=== PATIENT | female | born 1945 | race Caucasian/White ===

== ENCOUNTER 2020-04-24 22:28 | Emergency (ER) | payer OTHER ==
[2020-04-24] MEDS ORDERED: NA CHLORIDE 0.9% 0 ML ONE (23:15)
[2020-04-24] MEDS ORDERED: ONDANSETRON 4 MG/2 ML VIAL ONE ×2 (23:15→23:33)
[2020-04-24] MEDS ORDERED: NA CHLORIDE 0.9% 1,000 ML ONE (23:33)
[2020-04-24 23:42] LABS: Absolute Lymphocytes (CBC) 1.2 K/uL (0.7-4.9); Basophils % 0.3 % (0-1.3); Hematocrit 38.8 % (36.0-45.0); Lymphocytes % 16.9 % (15.3-44.8); MPV 9.3 fL (7.6-11.3); RBC Red Blood Cell Count 4.51 M/uL (3.86-4.86)
[2020-04-24 23:47] LABS: Urine Blood TRACE (NEG); Urine Glucose NEGATIVE (NEG); Urine Protein NEGATIVE (NEG)
[2020-04-24 23:51] LABS: Protime INR 0.98
[2020-04-24 23:56] LABS: ALT/SGPT 32 U/L (12-78); AST/SGOT 22 U/L (15-37); Albumin 4.1 g/dL (3.4-5.0); Alkaline Phosphatase 98 U/L (45-117); BUN Blood Urea Nitrogen 19 mg/dL (7-18); Bicarbonate 30 mmol/L (21-32); Bilirubin Direct < 0.1 mg/dL (0-0.2); Bilirubin Total 0.3 mg/dL (0.2-1.0); Glucose Level 91 mg/dL (74-106); Lipase 102 U/L (73-393); Potassium 3.8 mmol/L (3.5-5.1); Protein, Total 7.8 g/dL (6.4-8.2); Sodium Level 140 mmol/L (136-145); Troponin (Emerg Dept Use Only) < 0.02 ng/mL (0.0-0.045)
[2020-04-25 00:06] LABS: Urine Bacteria <20 /HPF (<20); Urine Culture Reflex Order NOT NEEDED; Urine RBC <5 /HPF (NONE SEEN)
--- NOTE | 2020-04-25 01:15 | ER ---
Nurse's Notes [facility] Name: Ruby Chan Age: 74 yrs Sex: Female : 1945 Arrival Date: 04/24/2020 Time: 22:30 Bed 18 Private MD: Diagnosis: Vomiting, unspecified;Near syncope Presentation: 04/24 22:39 Chief complaint: Patient states: she started feeling like she was going to pass out, bb with vomiting and her BP was in the 200s systolic. Coronavirus screen: At this time, the client does not indicate any symptoms associated with coronavirus-19. Ebola Screen: No symptoms or risks identified at this time. Initial Sepsis Screen: Does the patient meet any 2 criteria? No. Patient's initial sepsis screen is negative. Does the patient have a suspected source of infection? No. Patient's initial sepsis screen is negative. Risk Assessment: Do you want to hurt yourself or someone else? Patient reports no desire to harm self or others. Onset of symptoms was April 24, 2020. 22:39 Method Of Arrival: Wheelchair bb 22:39 Acuity: CHALINO 2 bb Historical: - Allergies: 22:41 No Known Allergies; bb - Immunization history:: Adult Immunizations up to date. - Social history:: Smoking status: Patient denies any tobacco usage or history of. - Family history:: not pertinent. - Hospitalizations: : No recent hospitalization is reported. Screenin:45 Abuse screen: Denies threats or abuse. Denies injuries from another. Nutritional aj1 screening: No deficits noted. Tuberculosis screening: No symptoms or risk factors identified. Assessment: 23:30 General: Appears in no apparent distress. comfortable, Behavior is calm, cooperative, aj1 appropriate for age. Pain: Complains of pain in abdomen Pain does not radiate. Pain currently is 3 out of 10 on a pain scale. Quality of pain is described as pressure, Patient states that the pain feels "like gas". Neuro: Level of Consciousness is awake, alert, obeys commands, Oriented to person, place, time, situation. Neuro: Splunk Consultant are equal bilaterally Moves all extremities. Full function Gait is steady, Speech is normal, Facial symmetry appears normal, Reports dizziness, near syncope. Cardiovascular: Denies chest pain, Heart tones S1 S2 present Patient's skin is warm and dry. Respiratory: Airway is patent Respiratory effort is even, unlabored, Respiratory pattern is regular, symmetrical. GI: Abdomen is flat, non-distended, Abd is soft X 4 quads Reports nausea, vomiting, Patient currently denies diarrhea. : No signs and/or symptoms were reported regarding the genitourinary system. EENT: No signs and/or symptoms were reported regarding the EENT system. Derm: No signs and/or symptoms reported regarding the dermatologic system. Skin is pink, warm \\T\\ dry. normal. Musculoskeletal: No signs and/or symptoms reported regarding the musculoskeletal system. Circulation, motion, and sensation intact. 04/25 00:30 Reassessment: Patient appears in no apparent distress at this time. Patient and/or jb4 family updated on plan of care and expected duration. Pain level reassessed. Patient is alert, oriented x 3, equal unlabored respirations, skin warm/dry/pink. 01:00 Reassessment: Pt resting in bed with eyes closed, respirations are even and unlabored. jb4 No s/s of pain or distress noted. Son remains at the bedside. Vital Signs: 04/24 22:39 BP 193 / 85; Pulse 59; Resp 16 S; Temp 97.7(O); Pulse Ox 99% on R/A; Weight 83.91 kg bb (R); Height 5 ft. 9 in. (175.26 cm) (R); Pain 0/10; 23:45 BP 167 / 75; Pulse 72; Resp 16; Pulse Ox 98% on R/A; aj1 04/25 01:00 BP 120 / 68; Pulse 64; Resp 14; Pulse Ox 92% on R/A; jb4 04/24 22:39 Body Mass Index 27.32 (83.91 kg, 175.26 cm) bb ED Course: 04/24 22:30 Patient arrived in ED. am2 22:40 Triage completed. bb 22:41 Arm band placed on Patient placed in an exam room, on a stretcher, on potline monitor, bb on pulse oximetry. Family accompanied patient. 22:42 Jackson Meza MD is Attending Physician. rn 23:10 Urine collected: clean catch specimen, clear, adolfo colored. jp3 23:12 EKG done, by ED staff, reviewed by Jackson Meza MD. jp3 23:45 Patient has correct armband on for positive identification. Bed in low position. Call aj1 light in reach. Side rails up X 1. bus monitor on. Pulse ox on. NIBP on. 23:45 No provider procedures requiring assistance completed. aj1 23:59 Report given to Yuliya Hodgson RN. aj1 04/25 00:18 Raul Hernandez, RN is Primary Nurse. jb4 00:37 CT Head Brain wo Cont In Process Unspecified. EDMS 00:37 CT Abd/Pelvis - IV Contrast Only In Process Unspecified. EDMS 01:42 IV discontinued, intact, bleeding controlled, No redness/swelling at site. Pressure jb4 dressing applied. Administered Medications: 04/24 23:15 Drug: NS 0.9% 1000 ml Route: IV; Rate: 1000 ml; Site: right antecubital; jb4 04/25 01:42 Follow up: IV Status: Completed infusion; IV Intake: 1000ml jb4 04/24 23:17 Drug: Zofran (Ondansetron) 4 mg Route: IVP; Site: right antecubital; jb4 23:59 Follow up: Response: No adverse reaction aj1 Intake: 04/25 01:42 IV: 1000ml; Total: 1000ml. jb4 Outcome: 01:15 Discharge ordered by MD. rn 01:41 Discharged to home ambulatory, with family. jb4 01:41 Condition: stable 01:41 Discharge instructions given to patient, Instructed on discharge instructions, follow up and referral plans. medication usage, Demonstrated understanding of instructions, follow-up care, medications, Prescriptions given X 1. 01:42 Patient left the ED. jb4 Addendum: 04/30/2020 08:46 Addendum: COVID-19 Result: Negative result given to RN to notify pt. Notified pt of s s negative COVID 19 swab results. Pt advised that even with a negative test result they should remain in isolation until symptom free for 3 days without medication. Pt also advised to return to the ED for worsening symptoms. Signatures: Dispatcher [employer] Reena Esquivel RN RN aj1 Yuliya Winn RN RN bb Nieto, Roman, MD MD rn Smirch, Shelby, RN RN ss Raul Hernandez RN RN jb4 Myriam Lee am2 Uvaldo Ayers jp3
--- NOTE | 2020-04-25 01:15 | EDPHYS ---
Physician Documentation [facility] Name: Ruby Chan Age: 74 yrs Sex: Female : 1945 Arrival Date: 04/24/2020 Time: 22:30 Bed 18 Private MD: ED Physician Jackson Meza HPI: 04/24 22:55 This 74 yrs old Female presents to ER via Wheelchair with complaints of High rn Blood Pressure, Nausea/Vomiting, feels like passing out. 22:55 The patient presents to the emergency department with nausea, vomiting, abdominal pain. rn Onset: The symptoms/episode began/occurred today. Possible causes: bad food exposure. The symptoms are aggravated by nothing. The symptoms are alleviated by nothing. Severity of symptoms: At their worst the symptoms were moderate in the emergency department the symptoms have improved. The patient has not experienced similar symptoms in the past. The patient has not recently seen a physician. Reports ate peruvian food tonight, began to throw up at home, another family member with vomiting as well, they think is bad food exposure. Was on toilet trying to use bathroom, felt lightheaded, near syncope, did not pass out, took BP and was high so decided to come in for eval, feels a little better. NO headache/chest pain/sob/cough/diarrhea. . Historical: - Allergies: 22:41 No Known Allergies; bb - Immunization history:: Adult Immunizations up to date. - Social history:: Smoking status: Patient denies any tobacco usage or history of. - Family history:: not pertinent. - Hospitalizations: : No recent hospitalization is reported. ROS: 22:55 Constitutional: Negative for fever, chills, and weight loss, Eyes: Negative for injury, rn pain, redness, and discharge, Neck: Negative for injury, pain, and swelling, Cardiovascular: Negative for chest pain, palpitations, and edema, Respiratory: Negative for shortness of breath, cough, wheezing, and pleuritic chest pain, Abdomen/GI: + nausea/vomiting/abd pain MS/Extremity: Negative for injury and deformity, Skin: Negative for injury, rash, and discoloration, Neuro: Negative for headache, numbness, tingling, and seizure. Exam: 22:55 Constitutional: This is a well developed, well nourished patient who is awake, alert, rn and in no acute distress. Head/Face: Normocephalic, atraumatic. Eyes: Pupils equal round and reactive to light, extra-ocular motions intact. Lids and lashes normal. Conjunctiva and sclera are non-icteric and not injected. Cornea within normal limits. Periorbital areas with no swelling, redness, or edema. Cardiovascular: Regular rate and rhythm. No pulse deficits. Respiratory: No increased work of breathing, no retractions or nasal flaring. Abdomen/GI: soft mild bilateral lower abd tenderness, no rebound Skin: Warm, dry MS/ Extremity: Pulses equal, no cyanosis. Neurovascular intact. Full, normal range of motion. Equal circumference. Neuro: Awake and alert, GCS 15, oriented to person, place, time, and situation. Cranial nerves II-XII grossly intact. Motor strength 5/5 in all extremities. Sensory grossly intact. Cerebellar exam normal. 23:14 ECG was reviewed by the Attending Physician. rn Vital Signs: 22:39 BP 193 / 85; Pulse 59; Resp 16 S; Temp 97.7(O); Pulse Ox 99% on R/A; Weight 83.91 kg bb (R); Height 5 ft. 9 in. (175.26 cm) (R); Pain 0/10; 23:45 BP 167 / 75; Pulse 72; Resp 16; Pulse Ox 98% on R/A; aj1 04/25 01:00 BP 120 / 68; Pulse 64; Resp 14; Pulse Ox 92% on R/A; jb4 04/24 22:39 Body Mass Index 27.32 (83.91 kg, 175.26 cm) bb MDM: 04/24 22:42 Patient medically screened. rn 04/25 01:09 Differential diagnosis: Nonspecific abd pain, gastritis, cholecystitis, pancreatitis, rn appendicitis, diverticulitis, viral gastroenteritis, gastroenteritis, food poisoning. Data reviewed: vital signs, nurses notes, lab test result(s), radiologic studies, CT scan, and as a result, I will discharge patient. Counseling: I had a detailed discussion with the patient and/or guardian regarding: the historical points, exam findings, and any diagnostic results supporting the discharge/admit diagnosis, lab results, radiology results, the need for outpatient follow up, to return to the emergency department if symptoms worsen or persist or if there are any questions or concerns that arise at home. Response to treatment: the patient's symptoms have markedly improved after treatment, the patient's condition has returned to base line, the patient is now symptom free, patient is well hydrated. :11 ED course: Pt back to baseline, no acute findings on CT head or abdomen, stable vitals, rn improvement of BP without BP meds, ambulatory to bathroom, normal neuro exam. Will dc home with prn nausea medication. . 04/24 22:53 Order name: CBC with Diff 04/24 22:53 Order name: Basic Metabolic Panel 04/24 22:53 Order name: Protime (+inr); Complete Time: : 04/24 22:53 Order name: Ptt, Activated; Complete Time: 04/24 22:53 Order name: Influenza Screen (a \T\ B); Complete Time: : 04/24 22:53 Order name: COVID-19 04/24 22:53 Order name: Hepatic Function 04/24 22:53 Order name: Lipase; Complete Time: : 04/24 22:53 Order name: Urine Microscopic Only; Complete Time: : 04/24 22:53 Order name: Troponin (emerg Dept Use Only); Complete Time: : 04/24 22:53 Order name: CBC with Automated Diff; Complete Time: : EDCT 04/24 22:53 Order name: Basic Metabolic Panel; Complete Time: : [facility] 04/24 22:54 Order name: Liver (Hepatic) Function; Complete Time: [facility] 04/24 23:21 Order name: Urine Dipstick--Ancillary (enter results) tt3 04/24 22:53 Order name: CT Head Brain wo Cont 04/24 22:53 Order name: CT Abd/Pelvis - IV Contrast Only 04/24 22:53 Order name: IV Start; Complete Time: 23:25 04/24 22:53 Order name: Labs collected and sent; Complete Time: 23:25 04/24 22:53 Order name: Urine Dipstick-Ancillary (obtain specimen); Complete Time: 23:20 04/24 22:53 Order name: EKG - Nurse/Tech; Complete Time: 23:20 04/24 22:53 Order name: EKG; Complete Time: 22:54 rn 04/24 23:22 Order name: Urine Dipstick-Ancillary; Complete Time: 01:10 EDMS EC/10 23:14 Rate is 58 beats/min. Rhythm is regular. QRS Remer is Normal. SD interval is normal. QRS rn interval is normal. QT interval is normal. No Q waves. T waves are Normal. No ST changes noted. Clinical impression: Sinus bradycardia. Interpreted by me. Reviewed by me. Administered Medications: 23:15 Drug: NS 0.9% 1000 ml Route: IV; Rate: 1000 ml; Site: right antecubital; [facility] 04/25 01:42 Follow up: IV Status: Completed infusion; IV Intake: 1000ml [facility] 04/24 23:17 Drug: Zofran (Ondansetron) 4 mg Route: IVP; Site: right antecubital; [facility] 23:59 Follow up: Response: No adverse reaction aj1 Disposition: 04/25/20 01:15 Discharged to Home. Impression: Vomiting, unspecified, Near syncope. - Condition is Stable. - Discharge Instructions: Nausea and Vomiting, Adult, Near-Syncope. - Prescriptions for Zofran ODT 4 mg Oral tablet,disintegrating - place 1 tablet by TRANSLINGUAL route every 8 hours As needed; 20 tablet. - Medication Reconciliation Form, Thank You Letter, Antibiotic Education, Prescription Opioid Use form. - Follow up: Private Physician; When: As needed; Reason: Recheck today's complaints, Re-evaluation by your physician. - Problem is new. - Symptoms have improved. Signatures: Dispatcher [employer] EDCT Yuliya Winn RN RN bb Nieto, Roman, MD MD rn Bryson, James, RN RN jb4 Reena Gaston RN aj1 Corrections: (The following items were deleted from the chart) 04/25 01:42 01:15 04/25/2020 01:15 Discharged to Home. Impression: Vomiting, unspecified; Near jb4 syncope. Condition is Stable. Forms are Medication Reconciliation Form, Thank You Letter, Antibiotic Education, Prescription Opioid Use. Follow up: Private Physician; When: As needed; Reason: Recheck today's complaints, Re-evaluation by your physician. Problem is new. Symptoms have improved. rn
[2020-04-25 09:01] VITALS: TEMP 97.7
[2020-04-25 09:04] VITALS: BP 120/68; O2SAT 92
--- NOTE | 2020-04-25 10:20 | RAD REPORT ---
EXAM DESCRIPTION: CT abdomen and pelvis with IV contrast CLINICAL HISTORY: 74 years Female vomiting;Abd pain TECHNIQUE: Axial CT imaging of the abdomen and pelvis was performed following the administration of intravenous contrast.. Oral contrast was not administered. Sagittal and coronal reconstructed image s were then performed. The CT study is performed according to ALARA (as low as reasonably achievabl e) or ALARA/IMAGE GENTLY, with automatic adjustment of mA and/or kV according to patient size. Performed on: 04/25/2020 at 12:14 AM. COMPARISON: None FINDINGS: Lung bases: The lung bases are clear. There is minimal bibasilar atelectasis and/or fibros is. Liver: The liver is normal in size and configuration. There is a small focal area of fat adjacent to the falciform ligament along the anterior margin of the liver. Liver attenuation is within normal aly its. Spleen: The spleen is normal is size, configuration and attenuation. Gallbladder and bile duct: The gallbladder is well distended and unremarkable. There is no biliary ductal dilatation. Pancreas: The pancreas is grossly normal in size and configuration. Adrenal Glands: The adrenal glands are normal in size and configuration. Kidneys: The kidneys are normal in size and configuration. There is no evidence of hydronephrosis. Th ere is no evidence of nephrolithiasis. No definite solid or cystic renal mass lesions are identified. Stomach: The stomach is grossly normal. There is a moderate hiatal hernia. Bowel: The bowel gas pattern is non specific and non obstructive. There is moderate fecal residue sca ttered throughout the colon. There is occasional sigmoid colon diverticulosis. Appendix: The appendix is not well visualized on this examination. Free air: There is no evidence of free air. Free fluid: There is no evidence of free fluid. Vasculature: The aorta is normal in caliber and contour. There are mild atherosclerotic calcification s along the aorta. The inferior vena cava is grossly unremarkable. Lymphadenopathy: No pathologic lymphadenopathy is identified. Bladder: The bladder is well distended and smooth in contour. Reproductive: The uterus is surgically absent. Bones: No acute osseous abnormalities are identified. There is mild degenerative disc disease at mult iple levels. Soft tissues: No focal soft tissue abnormalities are identified. IMPRESSION: 1. No evidence of acute intra-abdominal or intrapelvic pathology. There is moderate feca l residue scattered throughout the colon. 2. There is occasional sigmoid colon diverticulosis. 3. Moderate hiatal hernia. 4. Prior hysterectomy. Electronically signed by: Neeru Ibrahim DO 04/25/2020 12:58 AM HOME VISIT FIELD CARE MANAGER Due to temporary technical issues with the PACS/Fluency reporting system, reports are being signed by the in house radiologist without review as a courtesy to ensure prompt reporting. The interpreting r adiologist is fully responsible for the content of the report.
--- NOTE | 2020-04-25 10:55 | RAD REPORT ---
EXAM DESCRIPTION: Head Brain Wo Cont CLINICAL HISTORY: Dizzy, vomiting COMPARISON: None. TECHNIQUE: Axial unenhanced CT imaging of the brain. Reformatted coronal and sagittal images obtaine d. This examination was performed according to our departmental dose optimization program, which include s automated exposure control, adjustment of the mA and/or kV according to patient size and/or use of iterative reconstruction technique. FINDINGS: There is moderate decreased attenuation of the periventricular white matter and troy rad iata due to chronic microvascular ischemic change. There is a normal appearance of the ventricles and extra-axial fluid spaces. There is no mass or midline shift. No evidence of large acute major territ orial infarction. No hyperdense vessel. Normal cerebellum and vermis. No cerebellar tonsillar ectopia. Prepontine cisterns are not effaced. N ormal sella contents. Intraorbital contents appear normal. Clear. The sinuses. Mastoid air cells are clear bilaterally. Int act skull base and calvarium. There is thickening of the inner table of the frontal bones due to hype rostosis. IMPRESSION: 1. Moderate chronic white matter changes. No intracranial acute finding. Electronically signed by: Jada Marc DO 04/25/2020 12:48 AM COMMERCIAL TRUCK DRIVER Due to temporary technical issues with the PACS/Fluency reporting system, reports are being signed by the in house radiologist without review as a courtesy to ensure prompt reporting. The interpreting r adiologist is fully responsible for the content of the report.
--- NOTE | 2020-04-25 18:05 | EKG ---
Test Date: 2020-04-24 Test Time: 23:08:29 Fibre Technologist: JULIA MEASUREMENT RESULTS: Intervals: Rate: 58 NV: 168 QRSD: 78 QT: 446 QTc: 437 [place]: P: 55 NV: 168 QRS: 73 T: 70 INTERPRETIVE STATEMENTS: Sinus bradycardia Otherwise normal ECG No previous ECG available for comparison Electronically Signed On 04-25-20 18:02:41 CLIENT MANAGER by David Meza
== END 2020-04-25 01:42 | disposition home or self-care (01) ==
LOC: ER 22:28
DX: R11.2 Nausea with vomiting, unspecified (principal); Z20.828 Contact with and (suspected) exposure to other viral communicable diseases
CPT/HCPCS: 96361; 93005; 85025; 80048; 36415; 85610; 80076; 85730; 84484; 83690; 87804 ×2; 70450; 74177; 96374; 99284; U0002; J7030; J2405; 81003; 81015

== ENCOUNTER 2021-08-06 17:34 | Emergency (ER) | payer OTHER ==
[2021-08-06] MEDS ORDERED: NA CHLORIDE 0.9% 1,000 ML ONE (18:11)
[2021-08-06 18:18] LABS: Absolute Lymphocytes (CBC) 0.7 K/uL (0.7-4.9); Hematocrit 40.9 % (36.0-45.0); Lymphocytes % 9.7 % (15.3-44.8); MPV 8.7 fL (7.6-11.3); RBC Red Blood Cell Count 4.79 M/uL (3.86-4.86)
[2021-08-06] MEDS ORDERED: ONDANSETRON 4 MG/2 ML VIAL ONE (18:29)
[2021-08-06 18:36] LABS: BUN Blood Urea Nitrogen 20 mg/dL (7-18); Bicarbonate 24 mmol/L (21-32); Glucose Level 113 mg/dL (74-106); Lipase 76 U/L (73-393); Potassium 3.7 mmol/L (3.5-5.1); Sodium Level 136 mmol/L (136-145)
[2021-08-06] MEDS ORDERED: NA CHLORIDE 0.9% 500 ML ONE (19:22)
[2021-08-06 20:01] LABS: Urine Blood Trace-lysed (Negative); Urine Glucose Negative (Negative); Urine Protein Negative (Negative)
[2021-08-06 20:05] LABS: SARS-COV-2 RT PCR NEGATIVE (NEGATIVE)
--- NOTE | 2021-08-06 20:06 | RAD REPORT ---
EXAM DESCRIPTION: CT - Abdomen Pelvis W Contrast - 08/06/2021 7:36 pm CLINICAL HISTORY: diarrhea, abdominal pain COMPARISON: <Comparisons> TECHNIQUE: Biphasic, helical CT imaging of the abdomen and pelvis was performed following 100 ml non -ionic IV contrast. No oral contrast. All CT scans are performed using dose optimization technique as appropriate and may include automated exposure control or mA/KV adjustment according to patient size. FINDINGS: No acute lung base findings. Patient has a moderate size hiatal hernia with 20% of the sto mach intrathoracic. This is stable. Liver shows a mild or borderline fatty infiltration pattern with no focal lesions. No portal vein abn ormality. Spleen and pancreas show no suspicious findings. Gallbladder and biliary tree are also with out suspicious finding. Symmetric renal function is seen with no hydronephrosis or suspicious renal mass. No pyelonephritis o r acute parenchymal process. No bladder abnormalities. No adrenal abnormalities. Uterus is absent. Ov luis angel are absent or atrophic. No gastric dilatation or gastric wall thickening seen. Small bowel loops are not dilated but there ar e numerous fluid-filled distal small bowel loops. Nonspecific enteritis is possible. Patient has mode rate sigmoid diverticulosis without diverticulitis. Fluid-filled right-side colon noted. No appendici tis findings. No free air, free fluid or inflammatory stranding. No hernia, mass or bulky lymphaden opathy. No suspicious bony findings. IMPRESSION: Contrast enhanced CT abdomen and pelvis showing no emerging finding. Nondilated fluid-filled small bowel loops are present and there is fluid in the right-side of the col on. Nonspecific enteritis would be a primary consideration. No colitis or bowel ischemia findings.
[2021-08-06 20:12] LABS: ALT/SGPT 35 U/L (12-78); Albumin 3.7 g/dL (3.4-5.0); Alkaline Phosphatase 68 U/L (45-117); Bilirubin Total 0.3 mg/dL (0.2-1.0); Protein, Total 7.4 g/dL (6.4-8.2)
[2021-08-06 20:21] LABS: AST/SGOT 34 U/L (15-37)
[2021-08-06 20:23] LABS: Bilirubin Direct < 0.1 mg/dL (0-0.2)
--- NOTE | 2021-08-06 22:45 | ER ---
Nurse's Notes [facility] Name: Ruby Chan Age: 76 yrs Sex: Female : 1945 Arrival Date: 08/06/2021 Time: 17:36 Bed 7 Private MD: Diagnosis: Diarrhea, unspecified Presentation: 08/06 17:55 Chief complaint: Patient states: she has had diarrhea for 3 days, and is now feeling ap3 weak. Coronavirus screen: At this time, the client does not indicate any symptoms associated with coronavirus-19. Ebola Screen: No symptoms or risks identified at this time. Initial Sepsis Screen:. Initial Sepsis Screen: Does the patient meet any 2 criteria? No. Patient's initial sepsis screen is negative. Does the patient have a suspected source of infection? No. Patient's initial sepsis screen is negative. Risk Assessment: Do you want to hurt yourself or someone else? Patient reports no desire to harm self or others. Onset of symptoms was August 03, 2021. 17:55 Method Of Arrival: Ambulatory ap3 17:55 Acuity: CHALINO 3 ap3 Triage Assessment: 17:59 General: Appears uncomfortable, Behavior is calm, cooperative, Reports fatigue for. ap3 Pain: Denies pain. Neuro: Level of Consciousness is awake, alert, obeys commands, Oriented to person, place, time, situation, Appropriate for age Speech is normal. Cardiovascular: Patient's skin is warm and dry. Respiratory: Airway is patent Respiratory effort is even, unlabored, Respiratory pattern is regular, symmetrical. GI: Reports diarrhea, nausea. Historical: - Allergies: 17:56 Demerol; ap3 - Home Meds: 17:57 unknown BP medication [Active]; unknown anxiety medication [Active]; unknown allergy ap3 medication [Active]; - PMHx: 17:57 cancer X's 2-Uterine \T\ Skin; ap3 - Immunization history:: Client reports having NOT received the Covid vaccine. Pneumococcal vaccine is up to date, Flu vaccine is not up to date. - Social history:: Smoking status: Patient denies any tobacco usage or history of. Screenin:00 Abuse screen: Denies threats or abuse. Nutritional screening: Has had N/V for 3 or more ap3 days. Tuberculosis screening: No symptoms or risk factors identified. 18:02 Fall Risk None identified. ph Assessment: 18:02 Reassessment: Pt ambulatory to room w/ no difficulties noted. ph 18:29 General: Appears in no apparent distress. comfortable, slender, well groomed, Behavior ph is calm, cooperative, appropriate for age. Pain: Denies pain. Neuro: Level of Consciousness is awake, alert, obeys commands, Oriented to person, place, time, situation, Reports weakness. Cardiovascular: Capillary refill < 3 seconds in bilateral fingers Patient's skin is warm and dry. Respiratory: Airway is patent Respiratory effort is even, unlabored. GI: Abdomen is flat, non-distended, Reports diarrhea, nausea, vomiting. Derm: Skin is intact, Skin is pink, warm \T\ dry. Musculoskeletal: Circulation, motion, and sensation intact. Range of motion: intact in all extremities. Vital Signs: 17:55 BP 101 / 75; Pulse 80; Resp 17; Temp 97.3(TE); Pulse Ox 98% on R/A; Weight 83.91 kg; ap3 Height 5 ft. 10 in. (177.80 cm); 18:31 BP 130 / 68; Pulse 71; Resp 18; Pulse Ox 97% on R/A; ph 20:45 BP 134 / 59; Pulse 64; Resp 14; Pulse Ox 99% on R/A; st1 21:56 BP 113 / 65; Pulse 66; Resp 15; Pulse Ox 100% on R/A; st1 23:10 BP 123 / 65; Pulse 60; Resp 14; Pulse Ox 100% on R/A; st1 17:55 Body Mass Index 26.54 (83.91 kg, 177.80 cm) ap3 ED Course: 17:36 Patient arrived in ED. as 17:56 Triage completed. ap3 18:00 Arm band placed on right wrist. ap3 18:02 Blanca Elaine, RN is Primary Nurse. ph 18:20 Patient has correct armband on for positive identification. Bed in low position. Call ph light in reach. Side rails up X 1. Adult w/ patient. electronic device monitor on. Pulse ox on. NIBP on. 18:20 Inserted saline lock: 20 gauge in left antecubital area, using aseptic technique. Blood ph collected. 18:27 Colby Alcala PA is PHCP. cp 18:27 Arturo Carson MD is Attending Physician. cp 19:18 COVID-19/FLU A+B Sent. sm5 19:36 CT Abd/Pelvis - IV Contrast Only In Process Unspecified. EDMS 21:53 C.difficile GDH Ag Sent. st1 21:53 CDIFF Sent. st1 23:09 No provider procedures requiring assistance completed. IV discontinued, intact, st1 bleeding controlled, No redness/swelling at site. Pressure dressing applied. Administered Medications: 18:20 Drug: NS 0.9% 1000 ml Route: IV; Rate: 1 bolus; Site: left antecubital; ph 18:29 Drug: Zofran (Ondansetron) 4 mg Route: IVP; Site: left antecubital; ph 19:09 CANCELLED (Physician Discretion): NS 0.9% 500 ml IV at 500 ml/hr continuous cp 19:21 Drug: NS 0.9% 500 ml Route: IV; Rate: 75 ml/hr; Site: left antecubital; sm5 22:58 Drug: Cipro (ciprofloxacin) 500 mg Route: PO; st1 Outcome: 22:44 Discharge ordered by MD. cp 23:10 Discharged to home ambulatory, with family. st1 23:10 Condition: stable 23:10 Discharge instructions given to patient, Instructed on discharge instructions, Demonstrated understanding of instructions, follow-up care, medications, Prescriptions given X 2. 23:25 Patient left the ED. st1 Signatures: Dispatcher [employer] EDMS Sandra Saldaña Patricia, RN RN Colby Acevedo PA PA cp Myriam Nava RN RN ap3 Betsy Cullen RN RN 5 Lexis Chairez RN RN st1 Corrections: (The following items were deleted from the chart) 17:59 17:56 Allergies: No Known Allergies; ap3 ap3
--- NOTE | 2021-08-06 22:45 | EDPHYS ---
Physician Documentation [facility] Name: Ruby Chan Age: 76 yrs Sex: Female : 1945 Arrival Date: 08/06/2021 Time: 17:36 Bed 7 Private MD: ED Physician Arturo Carson HPI: 08/06 18:15 This 76 yrs old Female presents to ER via Ambulatory with complaints of Diarrhea. cp 18:15 The patient presents to the emergency department with diarrhea, that is continuous. cp Onset: The symptoms/episode began/occurred 3 day(s) ago. 18:15 Possible causes: unknown. cp 18:15 Associated signs and symptoms: Pertinent positives: anorexia, diarrhea, Pertinent cp negatives: abdominal pain, constipation, fever, GI bleeding. Severity of symptoms: in the emergency department the symptoms are unchanged despite home interventions. Historical: - Allergies: 17:56 Demerol; ap3 - Home Meds: 17:57 unknown BP medication [Active]; unknown anxiety medication [Active]; unknown allergy ap3 medication [Active]; - PMHx: 17:57 cancer X's 2-Uterine \\T\\ Skin; ap3 - Immunization history:: Client reports having NOT received the Covid vaccine. Pneumococcal vaccine is up to date, Flu vaccine is not up to date. - Social history:: Smoking status: Patient denies any tobacco usage or history of. ROS: 18:20 Constitutional: Positive for poor PO intake, Negative for body aches, chills, fever. cp 18:20 Eyes: Negative for injury, pain, redness, and discharge. cp 18:20 ENT: Negative for ear pain, sore throat, difficulty swallowing, difficulty handling secretions. 18:20 Cardiovascular: Negative for chest pain. 18:20 Respiratory: Negative for cough, shortness of breath, wheezing. 18:20 Abdomen/GI: Positive for nausea, vomiting, and diarrhea, Negative for abdominal pain, constipation, hematemesis, black/tarry stool, rectal bleeding. 18:20 Neuro: Positive for weakness, Negative for altered mental status, dizziness, headache. 18:20 All other systems are negative. Exam: 18:25 Constitutional: The patient appears in no acute distress, alert, awake, cp non-diaphoretic, non-toxic, well developed, well nourished. 18:25 Head/Face: Normocephalic, atraumatic. cp 18:25 Eyes: Periorbital structures: appear normal, Conjunctiva: normal, no exudate, no injection, Sclera: no appreciated abnormality, Lids and lashes: appear normal, bilaterally. 18:25 ENT: External ear(s): are unremarkable, Nose: is normal, Mouth: Lips: moist, Oral mucosa: moist, Posterior pharynx: Airway: no evidence of obstruction, patent. 18:25 Chest/axilla: Inspection: normal. 18:25 Cardiovascular: Rate: normal, Rhythm: regular, Edema: is not appreciated, JVD: is not appreciated. 18:25 Respiratory: the patient does not display signs of respiratory distress, Respirations: normal, no use of accessory muscles, no retractions, labored breathing, is not present, Breath sounds: are clear throughout, no decreased breath sounds, no stridor, no wheezing. 18:25 Abdomen/GI: Inspection: abdomen appears normal, Bowel sounds: hyperactive, in all quadrants, Palpation: abdomen is soft and non-tender, in all quadrants. 18:25 Back: CVA tenderness, is absent. 18:25 Neuro: Orientation: to person, place \\T\\ time. Mentation: is normal, Motor: moves all fours, strength is normal, Sensation: is normal. Vital Signs: 17:55 BP 101 / 75; Pulse 80; Resp 17; Temp 97.3(TE); Pulse Ox 98% on R/A; Weight 83.91 kg; ap3 Height 5 ft. 10 in. (177.80 cm); 18:31 BP 130 / 68; Pulse 71; Resp 18; Pulse Ox 97% on R/A; ph 20:45 BP 134 / 59; Pulse 64; Resp 14; Pulse Ox 99% on R/A; st1 21:56 BP 113 / 65; Pulse 66; Resp 15; Pulse Ox 100% on R/A; st1 23:10 BP 123 / 65; Pulse 60; Resp 14; Pulse Ox 100% on R/A; st1 17:55 Body Mass Index 26.54 (83.91 kg, 177.80 cm) ap3 MDM: 18:36 Patient medically screened. cp 19:00 Differential diagnosis: gastritis, diverticulitis, viral gastroenteritis, cp gastroenteritis, colitis, dehydration, electrolyte abnormality. 22:44 Data reviewed: vital signs, nurses notes, lab test result(s), radiologic studies, CT cp scan. 22:44 Counseling: I had a detailed discussion with the patient and/or guardian regarding: the cp historical points, exam findings, and any diagnostic results supporting the discharge/admit diagnosis, lab results, radiology results. Response to treatment: Improved, patient reports she is feeling better and would like to be discharged to home vs continued observation and IV fluids. 08/06 18:04 Order name: Basic Metabolic Panel; Complete Time: 20:59 ma2 08/06 20:22 Interpretation: Normal except: GLUC 113; BUN 20; CRE 1.31; GFR 40; CA 8.1. cp 08/06 18:04 Order name: CBC with Diff; Complete Time: 19:08 ma2 08/06 20:22 Interpretation: Normal except: PLT 124; FREDY% 83.2; LYM% 9.7. cp 08/06 18:04 Order name: Hepatic Function; Complete Time: 20:59 ma 08/06 18:04 Order name: Lipase; Complete Time: 20:59 [facility] 08/06 19:03 Order name: COVID-19/FLU A+B (Document "Date of Onset" if Symptomatic) cp 08/06 19:03 Order name: Stool Culture 08/06 19:03 Order name: Occult Blood; Complete Time: 22:46 08/06 22:46 Interpretation: OB1 OCCULT BLOOD -- POSITIVE; Reviewed. 08/06 19:03 Order name: Ova And Parasites cp 08/06 19:03 Order name: Rotavirus Antigen; Complete Time: 22:46 cp 08/06 22:46 Interpretation: Reviewed. 08/06 19:04 Order name: COVID-19/FLU A+B; Complete Time: 20:21 EDAL 08/06 20:01 Order name: Urine Dipstick-Ancillary; Complete Time: 20:21 EDAL 08/06 20:58 Order name: CDIFF cp 08/06 18:04 Order name: IV Saline Lock; Complete Time: 18:20 ma2 08/06 18:04 Order name: Labs collected and sent; Complete Time: 18:20 ma2 08/06 18:07 Order name: Urine Dipstick-Ancillary (obtain specimen); Complete Time: 22:02 [facility] 08/06 19:09 Order name: CT Abd/Pelvis - IV Contrast Only; Complete Time: 20:21 cp 08/06 20:23 Order name: PO challenge; Complete Time: 21:12 cp Administered Medications: 18:20 Drug: NS 0.9% 1000 ml Route: IV; Rate: 1 bolus; Site: left antecubital; ph 18:29 Drug: Zofran (Ondansetron) 4 mg Route: IVP; Site: left antecubital; ph 19:09 CANCELLED (Physician Discretion): NS 0.9% 500 ml IV at 500 ml/hr continuous cp 19:21 Drug: NS 0.9% 500 ml Route: IV; Rate: 75 ml/hr; Site: left antecubital; sm5 22:58 Drug: Cipro (ciprofloxacin) 500 mg Route: PO; st1 Disposition Summary: 08/06/21 22:44 Discharge Ordered Location: Home cp Problem: new cp Symptoms: have improved cp Condition: Stable cp Diagnosis - Diarrhea, unspecified cp Followup: cp - With: Private Physician - When: 2 - 3 days - Reason: Recheck today's complaints Discharge Instructions: - Discharge Summary Sheet cp - Food Choices to Help Relieve Diarrhea, Adult cp - Diarrhea, Adult cp Forms: - Medication Reconciliation Form cp - Thank You Letter cp - Antibiotic Education cp - Prescription Opioid Use cp Prescriptions: - Zofran 4 mg Oral Tablet - take 1 tablet by ORAL route every 12 hours As needed; 20 tablet; Refills: 0, cp Product Selection Permitted - Cipro 500 mg Oral Tablet - take 1 tablet by ORAL route every 12 hours for 7 days; 14 tablet; Refills: 0, cp Product Selection Permitted Signatures: Dispatcher [employer] Blanca Harrington RN RN ph Colby Alcala, ALEX PA cp Arturo Carson MD MD ma2 Myriam Nava RN RN ap3 Betsy Cullen RN RN sm5 Lexis Chairez RN RN st1 Corrections: (The following items were deleted from the chart) 17:59 17:56 Allergies: No Known Allergies; ap3 ap3 19:09 19:03 NS 0.9% 500 ml IV at 500 ml/hr continuous ordered. cp cp 20:22 20:22 Normal except: GLUC 113; BUN 20; CRE 1.31; GFR 40. cp cp 20:59 20:59 C.difficile GDH Ag ordered. EDMS EDMS :59 20:59 C.difficile GDH Ag ordered. EDMS EDMS
[2021-08-06] MEDS ORDERED: CIPROFLOXACIN HCL 500 MG TAB ONE (23:00)
[2021-08-07 01:45] VITALS: TEMP 97.3
[2021-08-07 01:49] VITALS: O2SAT 100
[2021-08-07 01:50] VITALS: BP 123/65
== END 2021-08-06 23:25 | disposition home or self-care (01) ==
LOC: ER 17:34
DX: R19.7 Diarrhea, unspecified (principal); Z20.822 Contact with and (suspected) exposure to COVID-19; Z88.5 Allergy status to narcotic agent
CPT/HCPCS: 87045; 85025; 80048; 36415; 87177; 82274; 80076; 87046; 87209; 81003; 83690; 0240U; 87425; 74177; Q9967; J7040; J7030; J2405; 96374; 99284

== ENCOUNTER 2021-08-07 12:37 | Emergency (ER) | payer OTHER ==
[2021-08-07] MEDS ORDERED: NA CHLORIDE 0.9% 1,000 ML ONE (14:34)
[2021-08-07 14:42] LABS: Absolute Lymphocytes (CBC) 0.6 K/uL (0.7-4.9); Hematocrit 35.3 % (36.0-45.0); Lymphocytes % 19.2 % (15.3-44.8); MPV 8.6 fL (7.6-11.3); RBC Red Blood Cell Count 4.16 M/uL (3.86-4.86)
[2021-08-07 15:04] LABS: ALT/SGPT 31 U/L (12-78); AST/SGOT 27 U/L (15-37); Albumin 3.2 g/dL (3.4-5.0); Alkaline Phosphatase 53 U/L (45-117); BUN Blood Urea Nitrogen 12 mg/dL (7-18); Bicarbonate 26 mmol/L (21-32); Bilirubin Total 0.3 mg/dL (0.2-1.0); Glucose Level 103 mg/dL (74-106); Lipase 61 U/L (73-393); Potassium 4.2 mmol/L (3.5-5.1); Protein, Total 6.5 g/dL (6.4-8.2); Sodium Level 138 mmol/L (136-145)
[2021-08-07 15:05] LABS: Bilirubin Direct < 0.1 mg/dL (0-0.2)
[2021-08-07] MEDS ORDERED: DICYCLOMINE HCL 10 MG CAP ONE (15:41)
[2021-08-07] MEDS ORDERED: ONDANSETRON 4 MG/2 ML VIAL ONE (15:41)
--- NOTE | 2021-08-07 15:54 | ER ---
Nurse's Notes [facility] Name: Ruby Chan Age: 76 yrs Sex: Female : 1945 Arrival Date: 08/07/2021 Time: 12:38 Bed DX1 Private MD: Diagnosis: Diarrhea, unspecified;Nausea with vomiting, unspecified;Other viral enteritis Presentation: 08/07 13:25 Chief complaint: Patient states: she has continued symptoms from her visit yesterday. ap3 Patient reports that the diarrhea has continued, not improved and she is still unable to tolerate medications and food. Coronavirus screen: At this time, the client does not indicate any symptoms associated with coronavirus-19. Ebola Screen: No symptoms or risks identified at this time. Initial Sepsis Screen: Does the patient meet any 2 criteria? No. Patient's initial sepsis screen is negative. Does the patient have a suspected source of infection? No. Patient's initial sepsis screen is negative. Risk Assessment: Do you want to hurt yourself or someone else? Patient reports no desire to harm self or others. Onset of symptoms was August 04, 2021. 13:25 Method Of Arrival: Ambulatory ap3 13:25 Acuity: CHALINO 3 ap3 Triage Assessment: 13:28 General: Appears in no apparent distress. Behavior is calm, cooperative, appropriate ap3 for age. Pain: Denies pain. Neuro: Level of Consciousness is awake, alert, obeys commands, Oriented to person, place, time, situation, Appropriate for age Moves all extremities. Gait is steady. Cardiovascular: Patient's skin is warm and dry. Respiratory: Airway is patent Respiratory effort is even, unlabored, Respiratory pattern is regular, symmetrical. GI: Reports diarrhea, nausea, vomiting. Historical: - Allergies: 13:27 Demerol; ap3 - Home Meds: 13:27 unknown allergy medication [Active]; unknown anxiety medication [Active]; unknown BP ap3 medication [Active]; - PMHx: 13:27 cancer X's 2-Uterine \T\ Skin; ap3 - Immunization history:: Client reports having NOT received the Covid vaccine. Pneumococcal vaccine is up to date, Flu vaccine is not up to date. - Social history:: Smoking status: Patient denies any tobacco usage or history of. Screenin:29 Abuse screen: Denies threats or abuse. Nutritional screening: Has had N/V for 3 or more ap3 days. Tuberculosis screening: No symptoms or risk factors identified. 16:32 Fall Risk None identified. iw Assessment: 13:30 General: SEE TRIAGE NOTE. bp 14:38 Reassessment: No changes from previously documented assessment. Patient and/or family bp updated on plan of care and expected duration. Pain level reassessed. 15:30 Reassessment: PO CHALLENGE SUCCESSFUL. DISPO PENDING. bp 16:00 Reassessment: D/C ON HOLD FOR REMAINING IVF. bp Vital Signs: 13:25 BP 120 / 70; Pulse 64; Resp 17; Temp 97.7; Pulse Ox 97% on R/A; Weight 83.91 kg; Height ap3 5 ft. 10 in. (177.80 cm); Pain 0/10; 14:30 BP 125 / 64; Pulse 58; Resp 16; Pulse Ox 98% ; bp 15:30 BP 129 / 77; Pulse 58; Resp 16; Pulse Ox 96% ; bp 13:25 Body Mass Index 26.54 (83.91 kg, 177.80 cm) ap3 ED Course: 12:38 Patient arrived in ED. as 13:27 Triage completed. ap3 13:29 Arm band placed on left wrist. ap3 13:30 Patient has correct armband on for positive identification. Bed in low position. Call bp light in reach. Side rails up X2. Adult w/ patient. 13:38 [facility]. kb 13:38 Arturo Carson MD is Attending Physician. kb 14:12 Maged Lemon, ALLAN is Primary Nurse. bp 14:15 Inserted saline lock: 20 gauge in right antecubital area, using aseptic technique. bp Blood collected. 16:32 No provider procedures requiring assistance completed. IV discontinued, intact, iw bleeding controlled, No redness/swelling at site. Pressure dressing applied. Administered Medications: 14:30 Drug: NS 0.9% 1000 ml Route: IV; Rate: 1000 ml; Site: right antecubital; bp 16:32 Follow up: IV Status: Completed infusion iw 15:15 Drug: Zofran (Ondansetron) 4 mg Route: IVP; Site: right forearm; bp 15:57 Follow up: Response: Nausea is decreased bp 15:15 Drug: Bentyl (dicyclomine) 20 mg Route: PO; bp 15:57 Follow up: Response: No adverse reaction; Nausea is decreased bp Outcome: 15:53 Discharge ordered by . kb 16:32 Discharged to home ambulatory, with family. iw 16:32 Condition: good 16:32 Discharge instructions given to patient, Instructed on discharge instructions, follow up and referral plans. medication usage, Demonstrated understanding of instructions, follow-up care, medications, Prescriptions given X 2. 16:32 Patient left the ED. iw Signatures: Juju Cline, HEALTHCARE FINANCIAL ANALYST-C HEALTHCARE FINANCIAL ANALYST-Sandra Alegria as Celestina Goodwin, ALLAN RN iw Maged Lemon RN RN Myriam Shell RN RN ap3
--- NOTE | 2021-08-07 15:54 | EDPHYS ---
Physician Documentation [facility] Name: Ruby Chan Age: 76 yrs Sex: Female : 1945 Arrival Date: 08/07/2021 Time: 12:38 Bed DX1 Private MD: ED Physician Arturo Carson HPI: 08/07 15:21 This 76 yrs old Female presents to ER via Ambulatory with complaints of Diarrhea. kb 15:21 The patient presents to the emergency department with nausea, vomiting, diarrhea. kb Onset: The symptoms/episode began/occurred 4 day(s) ago. Possible causes: sick contacts. The symptoms are aggravated by nothing. The symptoms are alleviated by nothing. Associated signs and symptoms: Pertinent positives: diarrhea, nausea, vomiting. Severity of symptoms: At their worst the symptoms were moderate in the emergency department the symptoms are unchanged. The patient has not experienced similar symptoms in the past. The patient has been recently seen at the [facility] Emergency Department. Pt reports n/v/d since Thursday. States she came in yesterday, was discharged, but unable to tolerate po medication so she came back today. concerned that she is dehydrated. . Historical: - Allergies: 13:27 Demerol; ap3 - Home Meds: 13:27 unknown allergy medication [Active]; unknown anxiety medication [Active]; unknown BP ap3 medication [Active]; - PMHx: 13:27 cancer X's 2-Uterine \T\ Skin; ap3 - Immunization history:: Client reports having NOT received the Covid vaccine. Pneumococcal vaccine is up to date, Flu vaccine is not up to date. - Social history:: Smoking status: Patient denies any tobacco usage or history of. ROS: 15:21 Constitutional: Negative for fever, chills, and weight loss. kb 15:21 Abdomen/GI: Positive for nausea, vomiting, and diarrhea. 15:21 All other systems are negative. Exam: 15:21 Constitutional: This is a well developed, well nourished patient who is awake, alert, kb and in no acute distress. Head/Face: Normocephalic, atraumatic. ENT: Moist Mucous membranes Cardiovascular: Regular rate and rhythm with a normal S1 and S2. No gallops, murmurs, or rubs. No pulse deficits. Respiratory: Respirations even and unlabored. No increased work of breathing. Talking in full sentences Abdomen/GI: Soft, non-tender. No distention Skin: Warm, dry with normal turgor. Normal color. MS/ Extremity: Pulses equal, no cyanosis. Neurovascular intact. Full, normal range of motion. Neuro: Awake and alert, GCS 15, oriented to person, place, time, and situation. Moves all extremities. Normal gait. Psych: Awake, alert, with orientation to person, place and time. Behavior, mood, and affect are within normal limits. Vital Signs: 13:25 BP 120 / 70; Pulse 64; Resp 17; Temp 97.7; Pulse Ox 97% on R/A; Weight 83.91 kg; Height ap3 5 ft. 10 in. (177.80 cm); Pain 0/10; 14:30 BP 125 / 64; Pulse 58; Resp 16; Pulse Ox 98% ; bp 15:30 BP 129 / 77; Pulse 58; Resp 16; Pulse Ox 96% ; bp 13:25 Body Mass Index 26.54 (83.91 kg, 177.80 cm) ap3 MDM: 13:39 Patient medically screened. kb 15:20 Data reviewed: vital signs, nurses notes. Data interpreted: Pulse oximetry: on room air kb is 98 %. Interpretation: normal. Counseling: I had a detailed discussion with the patient and/or guardian regarding: the historical points, exam findings, and any diagnostic results supporting the discharge/admit diagnosis, lab results, the need for outpatient follow up, a family practitioner, to return to the emergency department if symptoms worsen or persist or if there are any questions or concerns that arise at home. 08/07 13:46 Order name: Basic Metabolic Panel; Complete Time: 15:06 kb 08/07 13:46 Order name: CBC with Diff; Complete Time: 14:57 kb 08/07 13:46 Order name: Hepatic Function; Complete Time: 15:06 kb 08/07 13:46 Order name: Lipase; Complete Time: 15:06 kb 08/07 13:46 Order name: IV Saline Lock; Complete Time: 14:37 kb 08/07 13:46 Order name: Labs collected and sent; Complete Time: 14:37 kb 08/07 15:06 Order name: PO challenge; Complete Time: 15:52 kb Administered Medications: 14:30 Drug: NS 0.9% 1000 ml Route: IV; Rate: 1000 ml; Site: right antecubital; bp 16:32 Follow up: IV Status: Completed infusion iw 15:15 Drug: Zofran (Ondansetron) 4 mg Route: IVP; Site: right forearm; bp 15:57 Follow up: Response: Nausea is decreased bp 15:15 Drug: Bentyl (dicyclomine) 20 mg Route: PO; bp 15:57 Follow up: Response: No adverse reaction; Nausea is decreased bp Disposition Summary: 08/07/21 15:53 Discharge Ordered Location: Home kb Condition: Stable kb Diagnosis - Diarrhea, unspecified kb - Nausea with vomiting, unspecified kb - Other viral enteritis kb Followup: kb - With: Emergency Department - When: As needed - Reason: Worsening of condition Followup: kb - With: Private Physician - When: 2 - 3 days - Reason: Recheck today's complaints, Continuance of care, Re-evaluation by your physician Discharge Instructions: - Discharge Summary Sheet kb - Food Choices to Help Relieve Diarrhea, Adult kb - Viral Gastroenteritis, Adult, [id number] kb Forms: - Medication Reconciliation Form kb - Thank You Letter kb - Antibiotic Education kb - Prescription Opioid Use kb Prescriptions: - Zofran 4 mg Oral Tablet - take 1 tablet by ORAL route every 6 hours As needed; 20 tablet; Refills: 0, kb Product Selection Permitted - dicyclomine 20 mg Oral Tablet - take 1 tablet by ORAL route 4 times per day As needed; 20 tablet; Refills: 0, kb Product Selection Permitted Signatures: Dispatcher [employer] Juju Sol, JOSE CRUZ GOETZ-Maged Craig, RN RN bp Myriam Nava RN RN ap3 Celestina Goodwin RN iw
[2021-08-07 16:50] VITALS: TEMP 97.7
[2021-08-07 16:53] VITALS: BP 129/77; O2SAT 96
== END 2021-08-07 16:32 | disposition home or self-care (01) ==
LOC: ER 12:37
DX: A08.39 Other viral enteritis (principal); R19.7 Diarrhea, unspecified; Z88.5 Allergy status to narcotic agent
CPT/HCPCS: 96361; 85025; 80048; 36415; 80076; 83690; 96374; 99284; J7030; J2405

== ENCOUNTER 2022-03-02 22:15 | Emergency (ER) | payer OTHER ==
--- OUTSIDE RECORDS SUMMARY | 2022-03-02 22:18 | XMS REPORT | Clinical Summary ---
:1945 Author Organization [facility] MD Jarrett [facility] Center Address [address] [place] [address] Care Team Providers Name Role Phone Douglas Ayala MD Unavailable Joseline Hernandez MD Primary Care Provider Allergies Active Allergy Reactions Severity Noted Date Comments Carboplatin Itching, Swelling, Other Medium 08/07/2016 Del ayed reaction - 24 (See Comments) hours post tx ; facial erythema and pr uritis, tongue and lip swelling Meperidine 01/24/2016 * sensitive* Medications Medication Sig Dispensed Refills Start Date End Date Status amLODIPine (NORVASC) TAKE 1 TABLET BY 0 05/08/2020 Active 10 mg tablet MOUTH ONCE DAILY FOR BLOOD PRESSURE escitalopram (LEXAPRO) Take 20 mg by 0 Active 20 mg tablet mouth. Active Problems Problem Noted Date Malignant neoplasm of endometrium 07/21/2019 Overview: Added automatically from request for duong carol [id number] Hypertension 08/05/2018 Neuropathy 04/23/2017 FIGO EC stage IIIB 12/04/2014 Cancer Staging: Clinical stage from 12/05: Stage IIIB (Primary) - Unsigned Overview: Adenocarcinoma of uterus Surgical History Surgery Date Site/Laterality Comments ROBOTIC ASSISTED HYSTERECTOMY 12/05/2015 ROBOTIC LAPAROSCOPIC SALPINGOOOPHORECTOMY ENTEROLYSIS CYSTOSCOPY URETEROSCOPY Medical History Medical History Date Comments Chronic bronchitis 06/15/2013 Uterine leiomyoma 06/15/2014 bleeding Fracture 06/15/2004 Fractured wrist Arthritis 06/15/2005 fingers Depression 06/15/1989 Anxiety 06/15/2009 Other abnormal auditory perception of right ear 06/15/1970 hoarding/collecting Malignant melanoma 06/15/1971 Class IV partial loss of teeth due to other specified 06/23/19 17 cause Neuropathy 04/23/2017 Hypertension 06/15/2003 Urge incontinence Family History Medical History Relation Name Comments -Thoracic or Lung Father Sarahy Rodgers lung/smoker Hypertension Mother Ruby Rodgers Stroke Mother Ruby Rodgers Relation Name Status Comments Father Sarahy Rodgers Mother Ruby Rodgers Social History Tobacco Use Types Packs/Day Years Used Date Never Smoker Smokeless Tobacco: Never Used Tobacco Cessation: Counseling Given: No Alcohol Use Standard Drinks/Week Comments No 0 (1 standard drink = 0.6 oz pure alcoho l) Sex Assigned at Date Recorded Not on file Job Start Date Occupation Industry Not on file Not on file Not on file Obstetrics History Para Term AB IAB SAB Ectopic Multiple Living Live Births 2 2 2 0 0 0 0 0 0 0 0 Date Outcome GA Total Labor/2nd/3rd Weight Sex Delivery Anes PTL Cary A 1 A5 Name Clin Labor Term Term Last Filed Vital Signs Not on file Plan of Treatment Health Maintenance Due Date Last Done Comments COVID-19 Vaccination (#1) 1945 Results Not on fileafter 03/02/2021 Insurance Payer Benefit Plan / Subscriber ID Effective Phone Address T ype Group Dates UNITED UHC MEDICARE [id number] 2020-Prese [address]36 Medicare HEALTHCARE ADVANTAGE [place] [id number] Care Teams Registry Np Relationship Specialty Start Date End Date Douglas Ayala PCP - External Follow Obstetrics/Gynecology 11/14 12/28 Up [address] [facility] [address] [place] [address] Joseline Hernandez MD PCP - General [facility] 12/03/[address] [place] [id number]
--- OUTSIDE RECORDS SUMMARY | 2022-03-02 22:19 | XMS REPORT | Continuity of Care Document ---
:1945 Author Organization [facility] t Address [address] [place] [address] Care Team Providers Name Role Phone [phone] Primary Care Physician Unavailable DOMI Attending Clinician Unavailable DOMI Admitting Clinician Unavailable Problems Condition Condition Condition Status Onset Resolution Last Treating Co mments Source Name Details Category Date Date Treatment Clinician Date Malignant Malignant Disease Active Overview: Univers neoplasm neoplasm 07-21 Formattin ity of of of 00:00: g of this [place] endometriu endometriu 00 note MD corrine castle might be Tao garcia n from [facility] Added automatic ally from request for surgery [id number] Hypertensi Hypertensi Disease Active U nivyarelis on on 08-05 ity of 00:00: [place] 00 MD [facility] Neuropathy Neuropathy Disease Active 2016-06 U nivyarelis 06-23 ity of 00:00: [place] 00 MD [facility] FIGO EC FIGO EC Disease Active Overview: Univ ers stage IIIB stage IIIB 12-04 Formattin ity of 00:00: g of this 00 note might be Tao garcia n from the Cancer original. Center Adenocarc inoma of uterus Allergies, Adverse Reactions, Alerts Allergy Allergy Status Severity Reaction(s) Onset Inactive Treating Comm ents Source Name Type Date Date Clinician Carbopla Drug Active Other (See Delayed Uni vers tin Allergy Comments) 08-07 reaction ity of 00:00: - 24 [place] 00 hours MD post tx; Tao facial n erythema [facility] pruritis, tongue and lip swelling Meperidi Propensi Active * Univer s ne ty to 8-11 sensitive ity of adverse 00:00: * [place] reaction 00 MD melchor dawknis [facility] Family History Family Member Diagnosis Comments Start Date Stop Date Source Natural mother Stroke [facility] MD Kit Ventura [facility] Natural mother Hypertension [facility] [place] MD Kit [place] r [place] Natural father -Thoracic or Lung [facility] [place] MD Kit Ventura [facility] Social History Social Habit Start Date Stop Date Quantity Comments Source Alcohol intake 2020-01-19 2020-01-19 Current University of 00:00:00 00:00:00 non-drinker of [place] MD Kee muse alcohol (finding) [facility] Tobacco use and 2016-01-24 2016-01-24 Smokeless tobacco Un iversity of exposure 00:00:00 00:00:00 non-user [place] MD Kolby mitchell [facility] Sex Assigned At [birth year] Universit y of 00:00:00 00:00:00 [place] MD Kolby mitchell [facility] Smoking Status Start Date Stop Date Source Never smoked tobacco [facility] Medications Ordered Filled Start Stop Current Ordering Indication Dosage Frequency Signature Comments Components Source Medication Medication Date Date Medication? Clinician (SIG) Name Name escitalopra Yes 20mg Take 20 mg Univers m (LEXAPRO) 2-25 by mouth. ity of 20 mg 10:27: [place] tablet 01 MD Tao dawkins [facility] amLODIPine 2019-06 Yes TAKE 1 Unive rs (NORVASC) 1-24 TABLET BY ity o f 10 mg 00:00: MOUTH ONCE [place] tablet 00 DAILY FOR BLOOD Andvicki PRESSURE [facility] Procedures This patient has no known procedures. Plan of Care Planned Activity Planned Date Details Comments Source Future Scheduled 2021-12-18 COVID-19 Vaccination [facility] [place] Test 04:34:44 (#1) [code = COVID-19 Cancer Vaccination (#1)] Center Encounters Start End Encounter Admission Attending Care Care Encounter Source Date/Time Date/Time Type Type Clinicians Facility Department ID 2021-12-26 2021-12-26 Outpatient DANIEL BEYER [id number] 12:47:00 12:47:00 [facility] Results This patient has no known results.
[2022-03-03] LABS: Absolute Lymphocytes (CBC) 0.8 K/uL (0.7-4.9); Hematocrit 33.6 % (36.0-45.0); MPV 8.5 fL (7.6-11.3); RBC Red Blood Cell Count 4.05 M/uL (3.86-4.86)
[2022-03-03 00:07] LABS: Potassium 3.8 mmol/L (3.5-5.1)
--- NOTE | 2022-03-03 00:20 | ER ---
Nurse's Notes [facility] Name: Ruby Chan Age: 76 yrs Sex: Female : 1945 Arrival Date: 03/02/2022 Time: :18 Bed 12 Private MD: Diagnosis: Cellulitis of left lower limb Presentation: 03/02 22:26 Chief complaint: Bit by insect on top of left foot 4 days ago, noticed redness and hb swelling on top of foot then a rash that spread to her legs and arms. Coronavirus screen: At this time, the client does not indicate any symptoms associated with coronavirus-19. Ebola Screen: No symptoms or risks identified at this time. Initial Sepsis Screen: Does the patient meet any 2 criteria? No. Patient's initial sepsis screen is negative. Does the patient have a suspected source of infection? No. Patient's initial sepsis screen is negative. Risk Assessment: Do you want to hurt yourself or someone else? Patient reports no desire to harm self or others. Onset of symptoms was February 26, 2022. 22:26 Method Of Arrival: Ambulatory :26 Acuity: CHALINO 3 hb Triage Assessment: 22:29 General: Appears in no apparent distress. Behavior is calm, cooperative. Pain: Denies hb pain. Neuro: Level of Consciousness is awake, alert, obeys commands, Oriented to person, place, time, situation. Cardiovascular: Patient's skin is warm and dry. Respiratory: Respiratory effort is even, unlabored, Respiratory pattern is regular, symmetrical. Derm: Rash noted that is on legs and arms, puncture wound on top of left foot, redness and swelling noted to top of left foot. Historical: - Allergies: :29 Demerol; hb - PMHx: 22:29 cancer X's 2-Uterine \T\ Skin; hb - Immunization history:: Adult Immunizations up to date. - Social history:: Smoking status: Patient denies any tobacco usage or history of. Screenin:30 Abuse screen: Denies threats or abuse. Denies injuries from another. Nutritional hb screening: No deficits noted. Tuberculosis screening: No symptoms or risk factors identified. Fall Risk None identified. Assessment: 22:30 General: See triage assessment. 03/03 00:10 Reassessment: Patient appears in no apparent distress at this time. Patient and/or kl family updated on plan of care and expected duration. Pain level reassessed. Patient is alert, oriented x 3, equal unlabored respirations, skin warm/dry/pink. Vital Signs: 03/02 22:26 BP 154 / 72; Pulse 86; Resp 16; Temp 98.2; Pulse Ox 100% on R/A; Weight 88.45 kg; hb Height 5 ft. 10 in. (177.80 cm); Pain 0/10; 03/03 01:02 BP 148 / 76; Pulse 75; Resp 18; Pulse Ox 99% on R/A; kl 03/02 22:26 Body Mass Index 27.98 (88.45 kg, 177.80 cm) hb ED Course: 03/02 22:18 Patient arrived in ED. bp1 22:29 Triage completed. hb 22:29 Arm band placed on. hb 22:30 Patient has correct armband on for positive identification. hb 22:45 Juju Cline FNP-C is [facility] kb 22:45 Colby Pantoja MD is Attending Physician. kb 23:29 US Extremity Venous Unilateral Ltd In Process Unspecified. EDMS 23:35 Inserted saline lock: 20 gauge in right antecubital area, using aseptic technique. hb Blood collected. 23:40 Lactate Sent. hb 23:40 Blood Culture Adult (2) Sent. hb 23:40 Basic Metabolic Panel Sent. hb 23:40 CBC with Diff Sent. hb 03/03 01:02 No provider procedures requiring assistance completed. IV discontinued, intact, kl bleeding controlled, No redness/swelling at site. Pressure dressing applied. Administered Medications: 01:04 Drug: Bactrim (trimethoprim-sulfamethoxazole) (160 mg-800 mg (DS) 1 tablet Route: PO; kl 01:04 Drug: KeFLEX (cephalexin) 500 mg Route: PO; kl Medication: 03/02 22:30 VIS not applicable for this client. hb Outcome: 03/03 00:19 Discharge ordered by . kb 01:03 Discharged to home ambulatory. kl 01:03 Condition: good 01:03 Discharge instructions given to patient, Instructed on discharge instructions, follow up and referral plans. medication usage, Demonstrated understanding of instructions, follow-up care, medications. 01:03 Patient left the ED. kl Signatures: Dispatcher [employer] EDMS Juju Cline FNP-C TELEPHONE SURVEYOR-CkIta Reis, RN RN Lissette Rich RN RN Tanya [facility] Corrections: (The following items were deleted from the chart) 03/02 23:39 22:26 Acuity: CHALINO 4 hb hb
--- NOTE | 2022-03-03 00:20 | EDPHYS ---
Physician Documentation [facility] Name: Ruby Cahn Age: 76 yrs Sex: Female : 1945 Arrival Date: 03/02/2022 Time: 22:18 Bed 12 Private MD: ANIKET Physician Colby Pantoja HPI: 03/03 00:02 This 76 yrs old Female presents to ER via Ambulatory with complaints of Rash. kb 00:02 the patient presents with a swollen area of the left leg. Description: erythematous, kb swollen, warm. Onset: The symptoms/episode began/occurred 1 week(s) ago, and became worse yesterday. Possible cause(s): insect sting. Associated signs and symptoms: Pertinent positives: erythema, fever, swelling. Modifying factors: the symptoms are alleviated by nothing, the symptoms are aggravated by nothing. Severity of symptoms: At their worst the symptoms were moderate, in the emergency department the symptoms are unchanged. The patient has not experienced similar symptoms in the past. The patient has not recently seen a physician. Pt reports she was bit by something last week on her left foot. States since then she has gotten bites all over body. Noticed redness and swelling to foot last night and today it has spread up her lower leg. Historical: - Allergies: 03/02 22:29 Demerol; hb - PMHx: 22:29 cancer X's 2-Uterine \T\ Skin; hb - Immunization history:: Adult Immunizations up to date. - Social history:: Smoking status: Patient denies any tobacco usage or history of. ROS: 23:57 Respiratory: Negative for shortness of breath, cough, wheezing, and pleuritic chest kb pain. 23:57 Constitutional: Positive for fever. 23:57 Skin: Positive for cellulitis, erythema, swelling, of the left leg. 23:57 All other systems are negative. Exam: 03/03 00:01 Constitutional: This is a well developed, well nourished patient who is awake, alert, kb and in no acute distress. Head/Face: Normocephalic, atraumatic. ENT: Moist Mucous membranes Cardiovascular: Regular rate and rhythm with a normal S1 and S2. No gallops, murmurs, or rubs. No pulse deficits. Respiratory: Respirations even and unlabored. No increased work of breathing. Talking in full sentences MS/ Extremity: Pulses equal, no cyanosis. Neurovascular intact. Full, normal range of motion. Neuro: Awake and alert, GCS 15, oriented to person, place, time, and situation. Moves all extremities. Normal gait. Psych: Awake, alert, with orientation to person, place and time. Behavior, mood, and affect are within normal limits. Skin: cellulitis, that is mild, that is moderate, on the left leg. Vital Signs: 03/02 22:26 BP 154 / 72; Pulse 86; Resp 16; Temp 98.2; Pulse Ox 100% on R/A; Weight 88.45 kg; hb Height 5 ft. 10 in. (177.80 cm); Pain 0/10; 03/03 01:02 BP 148 / 76; Pulse 75; Resp 18; Pulse Ox 99% on R/A; kl 03/02 22:26 Body Mass Index 27.98 (88.45 kg, 177.80 cm) hb MDM: 03/02 22:45 Patient medically screened. kb 23:57 Data reviewed: vital signs, nurses notes. Data interpreted: Pulse oximetry: on room air kb is 100 %. Interpretation: normal. 03/02 22:53 Order name: CBC with Diff kb 03/02 22:53 Order name: Basic Metabolic Panel; Complete Time: 00:12 kb 03/02 22:53 Order name: Lactate; Complete Time: 00:19 kb 03/02 22:53 Order name: Blood Culture Adult (2) kb 03/02 22:53 Order name: US Extremity Venous Unilateral Ltd kb 03/03 00:05 Order name: CBC Smear Scan EDMS 03/02 22:53 Order name: IV Start; Complete Time: 23:40 kb Administered Medications: 03/03 01:04 Drug: Bactrim (trimethoprim-sulfamethoxazole) (160 mg-800 mg (DS) 1 tablet Route: PO; kl 01:04 Drug: KeFLEX (cephalexin) 500 mg Route: PO; kl Disposition Summary: 03/03/22 00:19 Discharge Ordered Location: Home kb Condition: Stable kb Diagnosis - Cellulitis of left lower limb kb Followup: kb - With: Emergency Department - When: As needed - Reason: Worsening of condition Followup: kb - With: Private Physician - When: 2 - 3 days - Reason: Recheck today's complaints, Continuance of care, Re-evaluation by your physician Discharge Instructions: - Discharge Summary Sheet kb - Cellulitis, Adult, [id number] kb Forms: - Medication Reconciliation Form kb - Thank You Letter kb - Antibiotic Education kb - Prescription Opioid Use kb Prescriptions: - Cephalexin 500 mg Oral Capsule - take 1 capsule by ORAL route every 8 hours for 10 days; 30 capsule; Refills: 0, kb Product Selection Permitted - Bactrim DS 800-160 mg Oral Tablet - take 1 tablet by ORAL route every 12 hours for 10 days; 20 tablet; Refills: 0, kb Product Selection Permitted Signatures: Dispatcher [employer] EDND Juju Cline, DISABILITY SERVICES COORDINATOR-C DISABILITY SERVICES COORDINATOR-Ita Molina, RN RN Lissette Rich RN RN
[2022-03-03] MEDS ORDERED: CEPHALEXIN 250 MG CAP ONE (00:57)
[2022-03-03] MEDS ORDERED: SMZ./TMP. 800/160 MG TABLET ONE (00:57)
[2022-03-03 01:18] LABS: Blood Morphology Comment NOT SEEN (NOT SEEN); Platelet Estimate DECR; White Blood Cell Scan OK (OK)
--- NOTE | 2022-03-03 15:56 | RAD REPORT ---
EXAM DESCRIPTION: Extremity Venous Uni Ltd RadLex: US EXTREMITY VEINS UNILATERAL CLINICAL HISTORY: SWELLING. COMPARISON: None. TECHNIQUE: Survey ultrasound imaging of the deep venous system of the left lower extremity was perfo rmed including vazquez scale, color, and spectral Doppler evaluation with airline security representative images obtained . Segmental venous compression and calf vein augmentation were performed. FINDINGS: Common femoral vein: Patent without thrombus. Normal respiratory phasicity is indirect rachael dence of central patency. Cephalad greater saphenous vein: Patent without thrombus. Normal respiratory phasicity is indirect ev idence of central patency. Femoral vein: Patent without thrombus. Popliteal vein: Patent without thrombus. Calf veins: Patent without thrombus. IMPRESSION: Negative for left lower extremity deep venous thrombosis. Electronically signed by: Milagro Bird MD 03/02/2022 11:43 PM CDT Due to temporary technical issues with the PACS/Fluency reporting system, reports are being signed by the in house radiologists without review as a courtesy to insure prompt reporting. The interpreting radiologist is fully responsible for the content of the report.
[2022-03-04 10:25] VITALS: BP 154/72; TEMP 98.2; O2SAT 100
== END 2022-03-03 01:03 | disposition home or self-care (01) ==
LOC: ER 22:15
DX: L03.116 Cellulitis of left lower limb (principal); Z88.5 Allergy status to narcotic agent
CPT/HCPCS: 36415; 80048; 83605; 85025; 87040; 93971; 99284

== ENCOUNTER 2022-03-06 08:28 | Emergency (ER) | payer OTHER ==
--- OUTSIDE RECORDS SUMMARY | 2022-03-06 08:31 | XMS REPORT | Clinical Summary ---
:1945 Author Organization [facility] MD Jarrett [facility] Center Address [address] [place] [address] Care Team Providers Name Role Phone Douglas [...] Added automatically from request for duong carol [id number] Hypertension 08/05/2018 Neuropathy 04/23/2017 FIGO EC stage [...] Vaccination (#1) 1945 Results Not on fileafter 03/06/2021 Insurance Payer Benefit Plan / Subscriber ID Effective Phone Address T ype Group Dates UNITED UHC MEDICARE [id number] 2020-Prese [address] Medicare HEALTHCARE ADVANTAGE [place] [id number] Light Repairer Helper Relationship Specialty Start Date End Date Douglas Ayala PCP - External Follow Obstetrics/Gynecology 11/14 12/28 [address] [facility] [address] [place] [address] Joseline Hernandez MD PCP - General [facility] 12/03/[address] [place] [id number]
--- OUTSIDE RECORDS SUMMARY | 2022-03-06 08:31 | XMS REPORT | Continuity of Care Document ---
:1945 Author Organization [facility] t Address [address] [place] [address] Care Team Providers Name Role Phone Joseline Hernandez MD Primary Care Physician DOMI Attending Clinician Unavailable DOMI Admitting Clinician Unavailable Problems Condition Condition Condition Status Onset Resolution Last Treating Co mments Source Name Details Category Date Date Treatment Clinician Date Malignant Malignant Disease Active Overview: Univers neoplasm neoplasm 07-21 Formattin ity of of of 00:00: g of this [place] endometriu endometriu 00 note MD corrine castle might be Tao garcia n from the Cancer original[facility] Center Added automatic ally from request for surgery [id number] Hypertensi Hypertensi Disease Active U nivers on on 08-05 ity of 00:00: [place] 00 MD [facility] Neuropathy Neuropathy Disease Active 2016-06 U nivers 06-23 ity of 00:00: [place] 00 MD [facility] FIGO EC FIGO EC Disease Active Overview: Univ ers stage IIIB stage IIIB 12-04 Formattin ity of 00:00: g of this [place] note might be Tao garcia n from the Cancer original. Center Adenocarc inoma of uterus Allergies, Adverse Reactions, Alerts Allergy Allergy Status Severity Reaction(s) Onset Inactive Treating Comm ents Source Name Type Date Date Clinician Carbopla Drug Active Other (See Delayed Uni vers tin Allergy Comments) 08-07 reaction ity of 00:00: - 24 [place] 00 hours post tx; Anderso facial n erythema [facility] pruritis, tongue and lip swelling Meperithom Propensi Active * Univer s ne ty to 8-11 sensitive ity of adverse 00:00: * [place] reaction 00 MD melchor dawkins [facility] [[email or web address]] Family History Family Member Diagnosis Comments Start Date Stop Date Source Natural mother Stroke [facility] MD Pantoja Cance [facility] Natural mother Hypertension Universi ty [facility] MD Pantoja [facility] Natural father -Thoracic or Lung [facility] [place] [facility] Social History Social Habit Start Date Stop Date Quantity Comments Source Alcohol intake 2020-01-19 2020-01-19 Current University of 00:00:00 00:00:00 non-drinker of [place] MD Kee muse alcohol (finding) [facility] [[email or web address]] Tobacco use and 2016-01-24 2016-01-24 Smokeless tobacco Un iversity of exposure 00:00:00 00:00:00 non-user [place] MD Kolby mitchell [facility] [[email or web address]] Sex Assigned At [birth year] Universit y of 00:00:00 00:00:00 [place] MD Kolby mitchell [facility] [[email or web address]] Smoking Status Start Date Stop Date Source Never smoked tobacco [facility] Medications Ordered Filled Start Stop Current Ordering Indication Dosage Frequency Signature Comments Components Source Medication Medication Date Date Medication? Clinician (SIG) Name Name escitalopra Yes 20mg Take 20 mg Univers m (LEXAPRO) 2-25 by mouth. ity of 20 mg 10:27: [place] tablet MD Tao dawkins [facility] [[email or web address]] escitalopra Yes 20mg Take 20 mg Univers m (LEXAPRO) 2-25 by mouth. ity of 20 mg 10:27: [place] tablet MD Tao dawkins [facility] [[email or web address]] amLODIPine 2019-06 Yes TAKE 1 Unive rs (NORVASC) 1-24 TABLET BY ity o f 10 mg 00:00: MOUTH ONCE [place] tablet 00 DAILY FOR BLOOD Anderso PRESSURE [facility] amLODIPine 2019-06 Yes TAKE 1 Unive rs (NORVASC) 1-24 TABLET BY ity o f 10 mg 00:00: MOUTH ONCE [place] tablet 00 DAILY FOR BLOOD Anderso PRESSURE [facility] Procedures This patient has no known procedures. Plan of Care Planned Activity Planned Date Details Comments Source Future Scheduled 2021-12-18 COVID-19 Vaccination [facility] [place] Test 04:34:44 (#1) [code = COVID-19 And erson Cancer Vaccination (#1)] Center Future Scheduled 2021-12-18 COVID-19 Vaccination [facility] [place] Test 04:34:44 (#1) [code = COVID-19 And erson Cancer Vaccination (#1)] Center Encounters Start End Encounter Admission Attending Care Care Encounter Source Date/Time Date/Time Type Type Clinicians Facility Department ID 2021-12-26 2021-12-26 Outpatient DANIEL BEYER [id number] 12:47:00 12:47:00 [facility] [address] [facility] Program Results This patient has no known results.
--- NOTE | 2022-03-06 09:39 | RAD REPORT ---
EXAM DESCRIPTION: RAD - Chest Single View - 03/06/2022 9:18 am CLINICAL HISTORY: MALAISE Chest pain. COMPARISON: No comparisons FINDINGS: Portable technique limits examination quality. The lungs are emphysematous but grossly clear. The heart is normal in size. No displaced fractures. IMPRESSION: Mild COPD.
[2022-03-06 09:40] LABS: Absolute Lymphocytes (CBC) 1.3 K/uL (0.7-4.9); Hematocrit 33.9 % (36.0-45.0); Lymphocytes % 26.8 % (15.3-44.8); MCV 82.8 fL (80-100); MPV 8.1 fL (7.6-11.3); RBC Red Blood Cell Count 4.09 M/uL (3.86-4.86)
[2022-03-06] MEDS ORDERED: NA CHLORIDE 0.9% 500 ML ONE (09:41)
[2022-03-06 09:50] LABS: Albumin 3.4 g/dL (3.4-5.0); Bilirubin Direct 0.1 mg/dL (0-0.2); Bilirubin Total 0.3 mg/dL (0.2-1.0); Magnesium 2.5 mg/dL (1.8-2.4); Potassium 4.4 mmol/L (3.5-5.1); Protein, Total 7.1 g/dL (6.4-8.2)
--- NOTE | 2022-03-06 10:17 | RAD REPORT ---
EXAM DESCRIPTION: CT - Head Brain Wo Cont - 03/06/2022 9:50 am CLINICAL HISTORY: DIZZY Headache, drowsiness COMPARISON: Head Brain Wo Cont dated 04/25/2020 TECHNIQUE: All CT scans are performed using dose optimization technique as appropriate and may inclu de automated exposure control or mA/KV adjustment according to patient size. FINDINGS: No intracranial hemorrhage, hydrocephalus or extra-axial fluid collection.Mild periventric ular and deep white matter chronic microvascular ischemia.No areas of brain edema or evidence of midl ine shift. The paranasal sinuses and mastoids are clear. The calvarium is intact. IMPRESSION: No acute intracranial abnormality.
[2022-03-06 10:22] LABS: Protime INR 0.99
[2022-03-06] MEDS ORDERED: ONDANSETRON 4 MG/2 ML VIAL ONE (11:07)
[2022-03-06 11:47] LABS: SARS-CoV-2 Antigen Rapid Res Negative (Negative)
--- NOTE | 2022-03-06 12:07 | EDPHYS ---
Physician Documentation [facility] Name: Ruby Chan Age: 76 yrs Sex: Female : 1945 Arrival Date: 03/06/2022 Time: 08:29 Bed 14 Private MD: ED Physician Colby Pantoja HPI: 03/06 08:55 This 76 yrs old Female presents to ER via Wheelchair with complaints of Weakness, Snake jh7 Bite Last Week. 08:55 Onset: The symptoms/episode began/occurred this morning. jh7 08:55 Associated signs and symptoms: Pertinent positives: Arthralgias, near syncope. jh7 76-year-old female presents to the ER complaining of generalized weakness starting this morning. Reports that she was bitten by a copperhead 11 days ago, seen here, and put on antibiotics. Reports that she woke up feeling extremely weak, and felt like she was get a pass out. Also complains of joint pain. Denies chest pain, shortness of breath, or dizziness.. Historical: - Allergies: 08:54 Demerol; aa5 - PMHx: 08:54 cancer X's 2-Uterine \\T\\ Skin; aa5 - Immunization history:: Adult Immunizations unknown. - Social history:: Smoking status: Patient denies any tobacco usage or history of. ROS: 08:55 Constitutional: Negative for fever, chills, and weight loss, Eyes: Negative for injury, jh7 pain, redness, and discharge, ENT: Negative for injury, pain, and discharge, Neck: Negative for injury, pain, and swelling, Cardiovascular: Negative for chest pain, palpitations, and edema, Respiratory: Negative for shortness of breath, cough, wheezing, and pleuritic chest pain, Abdomen/GI: Negative for abdominal pain, nausea, vomiting, diarrhea, and constipation, Back: Negative for injury and pain, MS/Extremity: Negative for injury and deformity, Skin: Negative for injury, rash, and discoloration. 08:55 Constitutional: 08:55 Neuro: Positive for near syncope, weakness, Negative for altered mental status, dizziness, headache, loss of consciousness, numbness, tingling, visual changes. 08:55 All other systems are negative. Exam: 08:55 Constitutional: This is a well developed, well nourished patient who is awake, alert, jh7 and in no acute distress. Head/Face: Normocephalic, atraumatic. Eyes: Pupils equal round and reactive to light, extra-ocular motions intact. Lids and lashes normal. Conjunctiva and sclera are non-icteric and not injected. Cornea within normal limits. Periorbital areas with no swelling, redness, or edema. ENT: Nares patent. No nasal discharge, no septal abnormalities noted. Tympanic membranes are normal and external auditory canals are clear. Oropharynx with no redness, swelling, or masses, exudates, or evidence of obstruction, uvula midline. Mucous membranes moist. Neck: Trachea midline, no thyromegaly or masses palpated, and no cervical lymphadenopathy. Supple, full range of motion without nuchal rigidity, or vertebral point tenderness. No Meningismus. Cardiovascular: Regular rate and rhythm with a normal S1 and S2. No gallops, murmurs, or rubs. Normal PMI, no JVD. No pulse deficits. Respiratory: Lungs have equal breath sounds bilaterally, clear to auscultation and percussion. No rales, rhonchi or wheezes noted. No increased work of breathing, no retractions or nasal flaring. Abdomen/GI: Soft, non-tender, with normal bowel sounds. No distension or tympany. No guarding or rebound. No evidence of tenderness throughout. Back: No spinal tenderness. No costovertebral tenderness. Full range of motion. 08:55 MS/ Extremity: Pulses equal, no cyanosis. Neurovascular intact. Full, normal range of motion. Neuro: Awake and alert, GCS 15, oriented to person, place, time, and situation. Cranial nerves II-XII grossly intact. Motor strength 5/5 in all extremities. Sensory grossly intact. Cerebellar exam normal. Normal gait. 08:55 Skin: Wound recheck: Cellulitis: the area has improved, decreased erythema, decreased pain, decreased swelling, Scab-like lesion over left dorsal foot where patient was bit by a snake. Patient reports improvement with only mild pain present.. Vital Signs: 08:31 BP 155 / 90; Pulse 85; Resp 24 S; Temp 97.7(O); Pulse Ox 98% on R/A; Weight 88.45 kg aa5 (R); Height 5 ft. 10 in. (177.80 cm) (R); Pain 0/10; 09:13 BP 130 / 67 Supine; Pulse 72; Resp 18; Pulse Ox 98% ; kb3 09:15 BP 125 / 81 Sitting; Pulse 79; Resp 18; Pulse Ox 100% ; kb3 09:16 BP 125 / 74 Standing; Pulse 79; Resp 20; Pulse Ox 100% ; kb3 10:00 BP 135 / 74; Pulse 62; Resp 20; Pulse Ox 97% ; kb3 11:33 BP 148 / 74; Pulse 65; Resp 20; Pulse Ox 97% ; kb3 13:00 BP 131 / 75; Pulse 63; Resp 18; Pulse Ox 97% ; kb3 08:31 Body Mass Index 27.98 (88.45 kg, 177.80 cm) aa5 NIH Stroke Scale Scores: 08:55 NIHSS Score: 0 [facility] MDM: 08:42 Patient medically screened. [facility] 12:45 Data reviewed: vital signs, nurses notes, lab test result(s), EKG, radiologic studies, [facility] CT scan, plain films. Data interpreted: Pulse oximetry: is 97 %. Interpretation: normal. Counseling: I had a detailed discussion with the patient and/or guardian regarding: the historical points, exam findings, and any diagnostic results supporting the discharge/admit diagnosis, to return to the emergency department if symptoms worsen or persist or if there are any questions or concerns that arise at home. Response to treatment: the patient's symptoms have markedly improved after treatment. ED course: Reviewed the patient's lab work and imaging. Informed both her and her son that her results were unremarkable. Her symptoms improved significantly after nausea meds. She reported that her main concern was that the possible snake venom had poisoned her body. Reassured her that her lab work showed no acute abnormalities and that she would need to increase her fluid intake at home. If she develops any new concerning symptoms, she may return to the ER for further eval.. 14:49 ED course: Received D-dimer result from lab. Patient presentation is not consistent [facility] with pulmonary embolism. She denies any shortness of breath or chest pain. Her vital signs are stable.. 03/06 08:55 Order name: Basic Metabolic Panel; Complete Time: 09:55 [facility] 03/06 08:55 Order name: CBC with Diff; Complete Time: 09:55 [facility] 03/06 08:55 Order name: D-Dimer; Complete Time: 14:46 [facility] 03/06 08:55 Order name: LFT's; Complete Time: 09:55 [facility] 03/06 08:55 Order name: Magnesium; Complete Time: 09:55 [facility] 03/06 08:55 Order name: NT PRO-BNP; Complete Time: 09:55 [facility] 03/06 08:55 Order name: PT-INR; Complete Time: 14:46 [facility] 03/06 08:55 Order name: Troponin HS; Complete Time: 09:55 [facility] 03/06 08:55 Order name: XRAY Chest (1 view); Complete Time: 09:55 [facility] 03/06 09:47 Order name: Glucose, Ancillary Testing; Complete Time: 09:55 [facility] 03/06 10:56 Order name: Flu; Complete Time: 12:35 [facility] 03/06 10:56 Order name: SARS RAPID; Complete Time: 11:52 [facility] 03/06 12:49 Order name: Urine Microscopic Only; Complete Time: 14:46 [facility] 03/06 14:47 Interpretation: Likely contaminated. Patient was having diarrhea at the same time as [facility] she was providing a sample. Nurse witnessed patient wiping from "back to front" multiple times. . 03/06 13:34 Order name: Urine Dipstick-Ancillary; Complete Time: 13:42 [facility] 03/06 08:52 Order name: EKG - Nurse/Tech; Complete Time: 08:52 [facility] 03/06 08:55 Order name: EKG; Complete Time: 08:56 [facility] 03/06 08:55 Order name: Cardiac monitoring; Complete Time: 10:49 [facility] 03/06 08:55 Order name: IV Saline Lock; Complete Time: 09:22 [facility] 03/06 08:55 Order name: Labs collected and sent; Complete Time: 09:22 [facility] 03/06 08:55 Order name: O2 Per Protocol; Complete Time: 09:22 [facility] 03/06 08:55 Order name: O2 Sat Monitoring; Complete Time: 09:22 [facility] 03/06 08:55 Order name: Orthostatic Blood Pressure; Complete Time: 09:22 [facility] 03/06 08:55 Order name: Blood Glucose Level; Complete Time: 09:39 [facility] 03/06 09:33 Order name: CT Head Brain wo Cont [facility] 03/06 09:42 Order name: Head Brain Wo Cont; Complete Time: 10:26 [facility] 03/06 12:49 Order name: Urine Dipstick-Ancillary (obtain specimen); Complete Time: 13:53 [facility] EC:55 Rate is 71 beats/min. Rhythm is regular. QRS [place] is Normal. TN interval is normal at [facility] 174 msec. QRS interval is normal at 84 msec. QT interval is normal at 392 msec. No Q waves. T waves are Normal. No ST changes noted. Clinical impression: Normal ECG. Administered Medications: 09:39 Drug: Sodium Chloride 0.9% 500 ml Route: IVPB; Site: right antecubital; kb3 10:00 Follow up: Response: No adverse reaction; IV Status: Completed infusion; IV Intake: kb3 500ml 11:02 Drug: Zofran (Ondansetron) 4 mg Route: IVP; Site: right antecubital; kb3 11:32 Follow up: Response: No adverse reaction kb3 12:45 Drug: Phenergan (promethazine) 12.5 mg Route: IVP; Site: right antecubital; kb3 13:30 Follow up: Response: No adverse reaction; Nausea is decreased kb3 Disposition Summary: 03/06/22 12:07 Discharge Ordered Location: Home [facility] Problem: new [facility] Symptoms: have improved [facility] Condition: Stable [facility] Diagnosis - Dizziness and giddiness [facility] Followup: [facility] - With: Private Physician - When: 2 - 3 days - Reason: Recheck today's complaints Discharge Instructions: - Discharge Summary Sheet [facility] - Dizziness [facility] - Nausea, Adult [facility] Forms: - Medication Reconciliation Form [facility] - Thank You Letter [facility] Prescriptions: - ondansetron 4 mg Oral tablet,disintegrating - place 1 tablet by TRANSLINGUAL route 4 times per day As needed; 20 tablet; [facility] Refills: 0, Product Selection Permitted NIH Stroke Scale - NIH Stroke Score Date: 03/06/2022 Time: 08:55 Total Score = 0 1a. Level of Consciousness (LOC) - 0(Alert) 1b. Level of Consciousness (LOC) (Month \\T\\ Age) - 0(Both) 1c. LOC Commands (Open \\T\\ Closes Eyes/Manager Of Planning) - 0(Both) 2. Best Gaze (Lateral Gaze Paresis) - 0(Normal) 3. Visual Field Loss - 0(No visual loss) 4. Facial Palsy - 0(Normal) 5a. Left Arm: Motor (10-second hold) - 0(No drift) 5b. Right Arm: Motor (10-second hold) - 0(No drift) 6a. Left Leg: Motor (5-second hold - always test supine) - 0(No drift) 6b. Right Leg: Motor (5-second hold - always test supine) - 0(No drift) 7. Limb Ataxia (finger/nose \\T\\ heel/trejo - test with eyes open) - 0(Absent) 8. Sensory Loss (pinprick arms/legs/face) - 0(Normal) 9. Best Language: Aphasia (description/naming/reading) - 0(No aphasia) 10. Dysarthria (speech clarity - read or repeat words) - 0(Normal) 11. Extinction and Inattention (visual/tactile/auditory/spatial/personal) - 0(No abnormality) Initials: [facility] Signatures: Dispatcher [employer] EDMS Noreen Wheeler, RN RN aa5 Amy Roman FNP STRUCTURAL ENGINEER 7 Gretta Bob RN RN kb3 Corrections: (The following items were deleted from the chart) 12:49 12:45 ED course: Reviewed the patient's lab work and imaging. Informed both her rainer and her son that her results were unremarkable.. 7 13:43 12:45 ED course: Reviewed the patient's lab work and imaging. Informed both her rainer and her son that her results were unremarkable. Her symptoms improved significantly after nausea meds. She reported that her main concern was that the possible snake venom had poisoned her body. Reassured her that her lab work was fine and that she would need to increase her fluid intake at home.. 7
--- NOTE | 2022-03-06 12:07 | ER ---
Nurse's Notes [facility] Name: Ruby Chan Age: 76 yrs Sex: Female : 1945 Arrival Date: 03/06/2022 Time: 08:29 Bed 14 Private MD: Diagnosis: Dizziness and giddiness Presentation: 03/06 08:31 Chief complaint: Patient states: "I was here on Thursday for a bite on my foot but I went aa5 home and now I am thinking it could of been a snake bite". Pt reports she came here today for dizziness, nausea, and "feeling like I am going to pass out". Denies any pain. 08:31 Coronavirus screen: At this time, the client does not indicate any symptoms associated aa5 with coronavirus-19. Ebola Screen: Patient denies travel to an Ebola-affected area in the 21 days before illness onset. Onset of symptoms was March 06, 2022. 08:31 Acuity: CHALINO 3 aa5 08:31 Method Of Arrival: Wheelchair aa5 09:00 Initial Sepsis Screen: Does the patient meet any 2 criteria? No. Patient's initial kb3 sepsis screen is negative. Does the patient have a suspected source of infection? No. Patient's initial sepsis screen is negative. Risk Assessment: Do you want to hurt yourself or someone else?. Triage Assessment: 09:00 General: Appears in no apparent distress. uncomfortable, Behavior is calm, cooperative. kb3 Historical: - Allergies: 08:54 Demerol; aa5 - PMHx: 08:54 cancer X's 2-Uterine \\T\\ Skin; aa5 - Immunization history:: Adult Immunizations unknown. - Social history:: Smoking status: Patient denies any tobacco usage or history of. Screenin:15 Abuse screen: Denies threats or abuse. Denies injuries from another. Nutritional kb3 screening: No deficits noted. Tuberculosis screening: No symptoms or risk factors identified. Fall Risk No fall in past 12 months (0 pts). Secondary diagnosis (15 points) Light-headed this morning. IV access (20 points). Ambulatory Aid- None/Bed Rest/Nurse Assist (0 pts). Gait- Normal/Bed Rest/Wheelchair (0 pts) Mental Status- Oriented to own ability (0 pts). Total Meza Fall Scale indicates Low Risk Score (25-44 pts). Fall prevention measures have been instituted. Placed close to Nursing Station Family Present and informed to notify staff if they need to leave bedside As available Patient and Family Educated on Fall Prevention Program and strategies. Assessment: 09:05 General: Appears in no apparent distress. comfortable, Behavior is calm, cooperative, kb3 Received care of pt from Noreen LEMUS. Pt is AAO x4, placed on all monitors. Pt reports she was seen in this ED 4 days ago with an insect bite to the top of her left foot with associated redness and swelling to foot and lower leg.. Pt reports she received antibiotics, swelling and redness has improved but she woke up this morning feeling light-headed and unwell. Also reports mild episode of diarrhea since beginning antibiotics. Pt reports she now believes it must have been a copperhead snake that envenomated her left foot and the venom is what is making her feel so sick today. Pt's son at bedside confirms the small scab on the dorsal surface of her left foot has improved since Thursday as well as the swelling and redness that she had in the left foot and lower leg.. 09:05 Pain: Denies pain. kb3 10:41 General: Pt ambulatory to restroom without difficulty. Gait steady. kb3 11:30 General: Pt assisted to BSC without incident by rolling machine operator automatic, pt reporting dizziness and kb3 feeling light-headed prior to sitting up in bed. VSS. 12:30 General: Pt reported feeling much better. No longer feeling dizzy and nausea had kb3 resolved. Discussed the importance of moving slowly from lying to sitting to standing. PT stated understanding. All monitoring equipment removed, pt sat up abruptly and stated "oh no, I think I might vomit." Pt vomited small amount of orange liquid, son states she has been drinking Pedialyte. Reported feeling better after vomiting. PED provider notified, orders received.. 13:15 General: Pt reports feeling much better. Nausea/vomiting has resolved, dizziness has kb3 resolved. . Vital Signs: 08:31 BP 155 / 90; Pulse 85; Resp 24 S; Temp 97.7(O); Pulse Ox 98% on R/A; Weight 88.45 kg aa5 (R); Height 5 ft. 10 in. (177.80 cm) (R); Pain 0/10; 09:13 BP 130 / 67 Supine; Pulse 72; Resp 18; Pulse Ox 98% ; kb3 09:15 BP 125 / 81 Sitting; Pulse 79; Resp 18; Pulse Ox 100% ; kb3 09:16 BP 125 / 74 Standing; Pulse 79; Resp 20; Pulse Ox 100% ; kb3 10:00 BP 135 / 74; Pulse 62; Resp 20; Pulse Ox 97% ; kb3 11:33 BP 148 / 74; Pulse 65; Resp 20; Pulse Ox 97% ; kb3 13:00 BP 131 / 75; Pulse 63; Resp 18; Pulse Ox 97% ; kb3 08:31 Body Mass Index 27.98 (88.45 kg, 177.80 cm) aa5 NIH Stroke Scale Scores: 08:55 NIHSS Score: 0 [facility] ED Course: 08:29 Patient arrived in ED. rg4 08:31 Arm band placed on. aa5 08:42 Amy Roman FNP is PHCP. 7 08:42 Colby Pantoja MD is Attending Physician. 7 08:52 EKG done, by ED staff. aa5 08:53 Triage completed. aa5 09:10 No provider procedures requiring assistance completed. Inserted saline lock: 20 gauge kb3 in right antecubital area, using aseptic technique. Blood collected. 09:15 Patient maintains SpO2 saturation greater than 95% on room air. kb3 09:15 Patient has correct armband on for positive identification. Placed in gown. Bed in low kb3 position. Call light in reach. Side rails up X2. Warm blanket given. 09:15 Client placed on continuous cardiac and pulse oximetry monitoring. NIBP monitoring kb3 applied. 09:20 XRAY Chest (1 view) In Process Unspecified. EDMS 09:20 Patient moved to radiology. kb3 09:22 Gretta Bob, RN is Primary Nurse. kb3 09:51 Head Brain Wo Cont In Process Unspecified. EDMS 11:22 SARS RAPID Sent. kb3 11:23 Flu Sent. kb3 13:45 IV discontinued, intact, bleeding controlled, No redness/swelling at site. kb3 Administered Medications: 09:39 Drug: Sodium Chloride 0.9% 500 ml Route: IVPB; Site: right antecubital; kb3 10:00 Follow up: Response: No adverse reaction; IV Status: Completed infusion; IV Intake: kb3 500ml 11:02 Drug: Zofran (Ondansetron) 4 mg Route: IVP; Site: right antecubital; kb3 11:32 Follow up: Response: No adverse reaction kb3 12:45 Drug: Phenergan (promethazine) 12.5 mg Route: IVP; Site: right antecubital; kb3 13:30 Follow up: Response: No adverse reaction; Nausea is decreased kb3 Medication: 09:15 VIS not applicable for this client. kb3 Intake: 10:00 IV: 500ml; Total: 500ml. kb3 Outcome: 12:07 Discharge ordered by . jh7 13:45 Discharged to home via wheelchair, with family. kb3 13:45 Condition: stable 13:45 Discharge instructions given to patient, family, Instructed on discharge instructions, follow up and referral plans. medication usage, Demonstrated understanding of instructions, follow-up care, medications, Prescriptions given X 1. 13:53 Patient left the ED. bm7 NIH Stroke Scale - NIH Stroke Score Date: 03/06/2022 Time: 08:55 Total Score = 0 1a. Level of Consciousness (LOC) - 0(Alert) 1b. Level of Consciousness (LOC) (Month \\T\\ Age) - 0(Both) 1c. LOC Commands (Open \\T\\ Closes Eyes/Glove Boarder) - 0(Both) 2. Best Gaze (Lateral Gaze Paresis) - 0(Normal) 3. Visual Field Loss - 0(No visual loss) 4. Facial Palsy - 0(Normal) 5a. Left Arm: Motor (10-second hold) - 0(No drift) 5b. Right Arm: Motor (10-second hold) - 0(No drift) 6a. Left Leg: Motor (5-second hold - always test supine) - 0(No drift) 6b. Right Leg: Motor (5-second hold - always test supine) - 0(No drift) 7. Limb Ataxia (finger/nose \\T\\ heel/trejo - test with eyes open) - 0(Absent) 8. Sensory Loss (pinprick arms/legs/face) - 0(Normal) 9. Best Language: Aphasia (description/naming/reading) - 0(No aphasia) 10. Dysarthria (speech clarity - read or repeat words) - 0(Normal) 11. Extinction and Inattention (visual/tactile/auditory/spatial/personal) - 0(No abnormality) Initials: jh7 Signatures: Dispatcher [employer] EDMS Noreen Wheeler, RN RN aa5 Ya Hughes rg4 Tanya Guerrero, RN RN bm7 Amy Roman, ARTS ADMINISTRATOR OR MANAGER ARTS ADMINISTRATOR OR MANAGER jh7 Gretta Bob, RN RN kb3 Corrections: (The following items were deleted from the chart) 09:04 08:32 Noreen Wheeler, RN is Primary Nurse. naomi salgado 10:26 09:05 General: Appears in no apparent distress. comfortable, Behavior is calm, kb3 cooperative, Received care of pt from Noreen LEMUS. Pt is AAO x4, placed on all monitors. Pt reports she was seen in this ED 2 days ago with an insect bite to the top of here left foot. Pt reports she received antibiotics, swelling and redness has improved but she woke up this morning feeling light-headed and unwell. Also reports mild episode of diarrhea since beginning antibiotics. Pt reports she now believes it must have been a copperhead snake that envenomated her left foot and the venom is what is making her feel so sick today. Pt's son at bedside confirms the small scab on the dorsal surface of her left foot has improved since Thursday as well as the swelling and redness that she had in the left foot and lower leg.. kb3 10:27 09:15 Fall Risk No fall in past 12 months (0 pts). No secondary diagnosis (0 kb3 pts). IV access (20 points). Ambulatory Aid- None/Bed Rest/Nurse Assist (0 pts). Gait- Normal/Bed Rest/Wheelchair (0 pts) Mental Status- Oriented to own ability (0 pts). Total Meza Fall Scale indicates No Risk (0-24 pts). kb3
[2022-03-06] MEDS ORDERED: PROMETHAZINE INJ 25 MG/ML AMP ONE (12:50)
[2022-03-06] MEDS ORDERED: NA CHLORIDE 0.9% 50 ML ONE (12:50)
[2022-03-06 13:33] LABS: Urine Blood Negative (Negative); Urine Glucose Negative (Negative); Urine Protein Negative (Negative)
--- NOTE | 2022-03-06 13:36 | EKG ---
Test Date: 2022-03-06 Test Time: 08:52:48 Watch Parts Grinder: JANA MEASUREMENT RESULTS: Intervals: Rate: 71 [place]: 174 QRSD: 84 QT: 392 QTc: 425 [place]: P: 57 [place]: 174 QRS: 53 T: 39 INTERPRETIVE STATEMENTS: Normal sinus rhythm Normal ECG Compared to ECG 04/24/2020 23:08:29 Sinus bradycardia no longer present Electronically Signed On 03-06-22 13:36:08 CDT by Fabian Parson
[2022-03-06 14:13] LABS: Urine Bacteria <20 /HPF (<20); Urine Mucus 3+ /HPF (None Seen)
[2022-03-08 04:38] VITALS: TEMP 97.7
[2022-03-08 04:49] VITALS: O2SAT 97
[2022-03-08 04:51] VITALS: BP 148/74
== END 2022-03-06 13:53 | disposition home or self-care (01) ==
LOC: ER 08:28
DX: R42 Dizziness and giddiness (principal); R53.1 Weakness; M25.50 Pain in unspecified joint; R55 Syncope and collapse; Z20.822 Contact with and (suspected) exposure to COVID-19; Z88.5 Allergy status to narcotic agent
CPT/HCPCS: 96365; 93005; 85025; 80048; 36415; 83735; 85610; 82947; 85379; 80076; 84484; 83880; 87804 ×2; 70450; 71045; 96375; 99284; 87811; J2550; J7040; J2405; 81003; 81015

== ENCOUNTER 2022-07-17 04:38 | Emergency (ER) | payer OTHER ==
--- OUTSIDE RECORDS SUMMARY | 2022-07-17 04:41 | XMS REPORT | Continuity of Care Document ---
:[address] [facility] [place], [place] t Address [address] [place] [address] Care Team Providers Name Role Phone Joseline Hernandez MD Primary Care Physician LOAN MELENDEZ Attending Clinician Unavailable DOMI Attending Clinician Unavailable DOMI Admitting Clinician Unavailable Problems Condition Condition Condition Status Onset Resolution Last Treating Co mments Source Name Details Category Date Date Treatment Clinician Date Malignant Malignant Disease Active Overview: Univers neoplasm neoplasm 07-21 Formattin ity of of of 00:00: g of this [place] endometriu endometriu 00 note MD corrine castle might be Tao garcia n from the Cancer original. Center Added automatic ally from request for surgery [id number] Hypertensi Hypertensi Disease Active U nivers on [...] (See Delayed Uni vers tin Allergy Comments) 2-23 reaction ity of 00:00: - 24 [place] 00 hours MD post tx; Tao duval n erythema [facility] pruritis, tongue and lip swelling Meperidi Propensi Active * Univer s ne ty to 8-11 sensitive ity of adverse 00:00: * [place] reaction 00 MD melchor dawkins [facility] Family History Family Member Diagnosis Comments Start Date Stop Date Source Natural mother Stroke [facility] [place] Natural mother Hypertension [facility] [place] Natural father -Thoracic or Lung [facility] [place] Social History Social Habit Start Date Stop Date Quantity Comments Source Alcohol intake 2020-01-19 2020-01-19 Current University of 00:00:00 00:00:00 non-drinker of [place] MD Kee muse alcohol (finding) [facility] Tobacco use and 2016-01-24 2016-01-24 Smokeless tobacco Un iversity of exposure 00:00:00 00:00:00 non-user [place] MD Kolby mitchell [facility] Sex Ass[birth year] Universit y of 00:00:00 00:00:00 [place] MD Kolby mitchell [facility] Smoking Status Start Date Stop Date Source Never smoked tobacco [facility] Medications Ordered Filled Start Stop Current Ordering Indication Dosage Frequency Signature Comments Components Source Medication Medication Date Date Medication? Clinician (SIG) Name Name escitalopra Yes 20mg Take 20 mg Univers m (LEXAPRO) 2-25 by mouth. ity of 20 mg 10:27: [place] tablet 01 MD Tao dawkins [facility] escitalopra Yes 20mg Take 20 mg Univers m (LEXAPRO) 2-25 by mouth. ity of 20 mg 10:27: [place] tablet 01 MD Tao dawkins [facility] escitalopra Yes 20mg Take 20 mg Univers m (LEXAPRO) 2-25 by mouth. ity of 20 mg 10:27: [place] tablet MD Tao dawkins [facility] escitalopra Yes 20mg Take 20 mg Univers m (LEXAPRO) 2-25 by mouth. ity of 20 mg 10:27: [place] tablet 01 [facility] amLODIPine 2019-06 Yes TAKE 1 Unive rs (NORVASC) 1-24 TABLET BY ity o f 10 mg 00:00: MOUTH ONCE [place] tablet 00 DAILY FOR MD BLOOD [facility]o [facility] amLODIPine 2019-06 Yes TAKE 1 Unive rs (NORVASC) 1-24 TABLET BY ity o f 10 mg 00:00: MOUTH ONCE [place] tablet 00 DAILY FOR MD BLOOD [facility] amLODIPine 2019-06 Yes TAKE 1 Unive rs (NORVASC) 1-24 TABLET BY ity o f 10 mg 00:00: MOUTH ONCE [place] tablet 00 DAILY FOR MD BLOOD [facility] n [facility] amLODIPine 2019-06 Yes TAKE 1 Unive rs (NORVASC) 1-24 TABLET BY ity o f 10 mg 00:00: MOUTH ONCE [place] tablet 00 DAILY FOR MD BLOOD [facility] Procedures This patient has no known procedures. Plan of Care Planned Activity Planned Date Details Comments Source Future Scheduled 2021-12-18 COVID-19 Vaccination [facility] [place] Test 04:34:44 (#1) [code = COVID-19 MD [facility] Vaccination (#1)] Center Future Scheduled 2021-12-18 COVID-19 Vaccination [facility] [place] Test 04:34:44 (#1) [code = COVID-19 MD [facility] Vaccination (#1)] Center Future Scheduled 2021-12-18 COVID-19 Vaccination [facility] [place] Test 04:34:44 (#1) [code = COVID-19 MD [facility] Vaccination (#1)] Center Future Scheduled 2021-12-18 COVID-19 Vaccination [facility] [place] Test 04:34:44 (#1) [code = COVID-19 MD [facility] Vaccination (#1)] Center Encounters Start End Encounter Admission Attending Care Care Encounter Source Date/Time Date/Time Type Type Clinicians Facility Department ID 2022-03-08 2022-03-09 Emergency E AL, [facility] [address] [facility] 12:49:00 01:36:00 LOAN 2021-12-26 2021-12-26 Outpatient JAMAR_LUIS MANUEL BEYER [address] [facility] 12:47:00 12:47:00 [facility] [address] [facility] Program Results This patient has no known results.
--- OUTSIDE RECORDS SUMMARY | 2022-07-17 04:41 | XMS REPORT | Clinical Summary ---
:1945 Author Organization [facility] MD Jarrett [facility] Address [address] [place] [address] Care Team Providers Name Role Phone Douglas [...] Added automatically from request for duong carol [id number] Hypertension 08/05/2018 Neuropathy 04/23/2017 FIGO EC stage [...] Tobacco Use Types Packs/Day Years Used Date Smoking Tobacco: Never Smokeless Tobacco: Never Tobacco Cessation: Counseling Given: No Alcohol Use [...] Vaccination (#1) 1945 Results Not on fileafter 07/17/2021 Insurance Payer Benefit Plan / Subscriber ID Effective Phone Address T ype Group Dates [facility] MED[employer] [id number] 2020-Prese [address] [address]36 Medicare HEALTHCARE ADVANTAGE [place] [id number] Care Teams Waste Management Engineer Relationship Specialty Start Date End Date Douglas Ayala PCP - External Follow Obstetrics/Gynecology 11/14 12/28 MD [place] A [address] [place] [address], [address] [place] [address] Joseline Hernandez MD PCP - General Gynecologic Medical 12/03/[address] [place] [id number]
[2022-07-17] MEDS ORDERED: ONDANSETRON 4 MG (ODT) TAB ONE (05:14)
[2022-07-17] MEDS ORDERED: AMLODIPINE 10 MG TAB ONE (05:14)
[2022-07-17 05:39] LABS: Absolute Lymphocytes (CBC) 1.2 K/uL (0.7-4.9); Hematocrit 36.6 % (36.0-45.0); Lymphocytes % 25.2 % (15.3-44.8); MCV 85.3 fL (80-100); MPV 8.3 fL (7.6-11.3); RBC Red Blood Cell Count 4.28 M/uL (3.86-4.86)
[2022-07-17 06:08] LABS: Albumin 3.6 g/dL (3.4-5.0); Bilirubin Total 0.3 mg/dL (0.2-1.0); Magnesium 2.2 mg/dL (1.6-2.4); Potassium 3.8 mmol/L (3.5-5.1); Thyroid Stimulating Hormone 2.65 uIU/mL (0.358-3.740); Troponin High Sensitivity 7.2 pg/mL (<58.9)
--- NOTE | 2022-07-17 06:17 | ER ---
Nurse's Notes [facility] Name: Ruby Chan Age: 77 yrs Sex: Female : 1945 Arrival Date: 07/17/2022 Time: 04:40 Bed 4 Private MD: Diagnosis: Essential (primary) hypertension Presentation: 07/17 05:02 Chief complaint: Patient states: i woke up around 0400 to a noise like someone was lg3 stomping in boots around my house but i realized it was my heart beat i was hearing. i just didn't feel right and started getting nauseous. i also took a baby aspirin at home. Coronavirus screen: Client denies travel out of the [place] in the last 14 days. At this time, the client does not indicate any symptoms associated with coronavirus-19. Ebola Screen: No symptoms or risks identified at this time. Initial Sepsis Screen: Does the patient meet any 2 criteria? No. Patient's initial sepsis screen is negative. Does the patient have a suspected source of infection? No. Patient's initial sepsis screen is negative. Risk Assessment: Do you want to hurt yourself or someone else? Patient reports no desire to harm self or others. Onset of symptoms was July 17, 2022. 05:02 Method Of Arrival: Ambulatory lg3 05:02 Acuity: CHALINO 3 lg3 Triage Assessment: 05:05 General: Appears in no apparent distress. comfortable, Behavior is cooperative, lg3 anxious. Pain: Denies pain. EENT: No deficits noted. No signs and/or symptoms were reported regarding the EENT system. Neuro: No deficits noted. Parker Agitation-Sedation Scale (RASS): 0 - Alert and Calm Level of Consciousness is awake, alert, obeys commands, Oriented to person, place, time, situation. Cardiovascular: Reports nausea, palpitations, Denies chest pain, shortness of breath, Capillary refill < 3 seconds Clubbing of nail beds is absent JVD is absent Patient's skin is warm and dry. Respiratory: No deficits noted. Airway is patent Trachea midline Respiratory effort is even, unlabored, Respiratory pattern is regular, symmetrical. GI: No deficits noted. Abdomen is round non-distended. : No deficits noted. No signs and/or symptoms were reported regarding the genitourinary system. Derm: No deficits noted. No signs and/or symptoms reported regarding the dermatologic system. Skin is intact, Skin is dry, Skin is normal. Musculoskeletal: No deficits noted. No signs and/or symptoms reported regarding the musculoskeletal system. Circulation, motion, and sensation intact. Range of motion: intact in all extremities. Historical: - Allergies: 05:05 Demerol; lg3 - Home Meds: 05:05 None [Active]; lg3 - PMHx: 05:05 hypertension; uterine cancer; melanoma; lg3 - PSHx: 05:05 section; lg3 - Immunization history:: Adult Immunizations up to date, Client reports having NOT received the Covid vaccine. Flu vaccine is not up to date. - Social history:: Smoking status: Patient denies any tobacco usage or history of. Patient uses alcohol, occasionally. - Family history:: not pertinent. Screenin:08 [facility] ED Fall Risk Assessment (Adult) History of falling in the last 3 months, lg3 including since admission No falls in past 3 months (0 pts). Abuse screen: Denies threats or abuse. Denies injuries from another. Nutritional screening: No deficits noted. Tuberculosis screening: No symptoms or risk factors identified. Assessment: 05:08 General: see triage assessment. lg3 05:37 Pain: Denies pain. lg3 06:15 Reassessment: Patient appears in no apparent distress at this time. Patient and/or lg3 family updated on plan of care and expected duration. Pain level reassessed. Patient is alert, oriented x 3, equal unlabored respirations, skin warm/dry/pink. Patient denies pain at this time. Patient states feeling better. Vital Signs: 05:02 BP 222 / 100; Pulse 71; Resp 17; Temp 98.9(O); Pulse Ox 100% on R/A; Weight 88.45 kg lg3 (R); Height 5 ft. 9 in. (175.26 cm) (R); Pain 0/10; 05:36 BP 175 / 87; Pulse 69; Resp 15 S; Pulse Ox 98% on R/A; lg3 06:15 BP 155 / 97; Pulse 68; Resp 17 S; Pulse Ox 98% on R/A; lg3 05:02 Body Mass Index 28.80 (88.45 kg, 175.26 cm) 3 ED Course: 04:40 Patient arrived in ED. 2 04:48 Jonathan Joel MD is Attending Physician. rt 05:02 Esther Castillo RN is Primary Nurse. lg3 05:05 Triage completed. lg3 05:05 Arm band placed on right wrist. lg3 05:08 Patient has correct armband on for positive identification. Placed in gown. Bed in low lg3 position. Call light in reach. Side rails up X 1. Client placed on continuous cardiac and pulse oximetry monitoring. NIBP monitoring applied. laboratory monitor on. Door closed. Noise minimized. Warm blanket given. Family accompanied patient. 05:08 Patient maintains SpO2 saturation greater than 95% on room air. lg3 05:22 TSH Sent. lg3 05:23 Magnesium Sent. lg3 05:23 CMP Sent. lg3 05:23 Troponin High Sensitivity Sent. lg3 05:23 CBC with Diff Sent. lg3 05:52 Chest Single View XRAY In Process Unspecified. EDMS 06:24 No provider procedures requiring assistance completed. Patient did not have IV access lg3 during this emergency room visit. Administered Medications: 05:22 Drug: amLODIPine 10 mg Route: PO; lg3 06:13 Follow up: Response: No adverse reaction; Blood pressure is lowered lg3 05:23 Drug: Ondansetron 4 mg Route: PO; lg3 06:13 Follow up: Response: No adverse reaction; Nausea is decreased lg3 Medication: 06:16 VIS not applicable for this client. lg3 Outcome: 06:17 Discharge ordered by MD. rt 06:24 Discharged to home ambulatory. lg3 06:24 Condition: stable 06:24 Discharge instructions given to patient, Instructed on discharge instructions, follow up and referral plans. medication usage, Demonstrated understanding of instructions, follow-up care, medications, Prescriptions given X 1. 06:24 Patient left the ED. lg3 Signatures: Dispatcher [employer] EDMS Esther Castillo RN RN lg3 Elizabeth Vasquez Jonathan Joel MD MD rt Corrections: (The following items were deleted from the chart) 05:07 05:05 PMHx: cancer X's 2-Uterine \T\ Skin; lg3 lg3
--- NOTE | 2022-07-17 06:18 | EDPHYS ---
Physician Documentation [facility] Name: Ruby Chan Age: 77 yrs Sex: Female : 1945 Arrival Date: 07/17/2022 Time: 04:40 Bed 4 Private MD: ANIKET Physician Jonathan Joel HPI: 07/17 05:41 This 77 yrs old Female presents to ER via Ambulatory with complaints of Irregular Pulse.rt 05:41 The patient presents with a history of irregular heart beat. Onset: The rt symptoms/episode began/occurred 1 hour(s) ago. Associated signs and symptoms: The patient has no apparent associated signs or symptoms. Severity of symptoms: At their worst the symptoms were moderate in the emergency department the symptoms have resolved. Patient presents to the ED with palpitations that woke her up about 1 hour prior to arrival. She had associated nausea. Patient states that she had the sensation that her heart was beating in her ears. She states that she has been off of her antihypertensives for some time. She denies any chest pain. She states that her symptoms have significantly improved. She no longer has palpitations. Symptoms are moderate in severity, no other aggravating or alleviating factors. The patient denies ever having a headache, blurred vision.. Historical: - Allergies: 05:05 Demerol; lg3 - Home Meds: 05:05 None [Active]; lg3 - PMHx: 05:05 hypertension; uterine cancer; melanoma; lg3 - PSHx: 05:05 section; lg3 - Immunization history:: Adult Immunizations up to date, Client reports having NOT received the Covid vaccine. Flu vaccine is not up to date. - Social history:: Smoking status: Patient denies any tobacco usage or history of. Patient uses alcohol, occasionally. - Family history:: not pertinent. ROS: 05:41 Constitutional: Negative for fever, chills, and weight loss, Respiratory: Negative for rt shortness of breath, cough, wheezing, and pleuritic chest pain, MS/Extremity: Negative for injury and deformity, Skin: Negative for injury, rash, and discoloration, Neuro: Negative for headache, weakness, numbness, tingling, and seizure, Psych: Negative for depression, anxiety, suicide ideation, homicidal ideation, and hallucinations. 05:41 Cardiovascular: Positive for palpitations, Negative for chest pain. 05:41 Abdomen/GI: Positive for nausea, Negative for abdominal pain. Exam: 05:41 Constitutional: This is a well developed, well nourished patient who is awake, alert, rt and in no acute distress. Head/Face: Normocephalic, atraumatic. Neck: Trachea midline, no thyromegaly or masses palpated, and no cervical lymphadenopathy. Supple, full range of motion without nuchal rigidity, or vertebral point tenderness. No Meningismus. Chest/axilla: Normal chest wall appearance and motion. Nontender with no deformity. No lesions are appreciated. Cardiovascular: Regular rate and rhythm with a normal S1 and S2. No gallops, murmurs, or rubs. Normal PMI, no JVD. No pulse deficits. Respiratory: Lungs have equal breath sounds bilaterally, clear to auscultation and percussion. No rales, rhonchi or wheezes noted. No increased work of breathing, no retractions or nasal flaring. Abdomen/GI: Soft, non-tender, with normal bowel sounds. No distension or tympany. No guarding or rebound. No evidence of tenderness throughout. Skin: Warm, dry with normal turgor. Normal color with no rashes, no lesions, and no evidence of cellulitis. MS/ Extremity: Pulses equal, no cyanosis. Neurovascular intact. Full, normal range of motion. Neuro: Awake and alert, GCS 15, oriented to person, place, time, and situation. Cranial nerves II-XII grossly intact. Motor strength 5/5 in all extremities. Sensory grossly intact. Cerebellar exam normal. Normal gait. Psych: Awake, alert, with orientation to person, place and time. Behavior, mood, and affect are within normal limits. 05:41 ECG was reviewed by the Attending Physician. Vital Signs: 05:02 BP 222 / 100; Pulse 71; Resp 17; Temp 98.9(O); Pulse Ox 100% on R/A; Weight 88.45 kg lg3 (R); Height 5 ft. 9 in. (175.26 cm) (R); Pain 0/10; 05:36 BP 175 / 87; Pulse 69; Resp 15 S; Pulse Ox 98% on R/A; lg3 06:15 BP 155 / 97; Pulse 68; Resp 17 S; Pulse Ox 98% on R/A; lg3 05:02 Body Mass Index 28.80 (88.45 kg, 175.26 cm) lg3 MDM: 04:52 Patient medically screened. rt 06:19 Differential diagnosis: Arrhythmia, ACS, hypertension. Data reviewed: vital signs, rt nurses notes, lab test result(s), EKG, radiologic studies. I considered the following discharge prescriptions or medication management in the emergency department Medications were administered in the Emergency Department. See MAR. Independent interpretation of the following test(s) in the Emergency Department X-Ray: My interpretation is No cardiomegaly. Test considered but Not performed: CT: No headache, CT scan of the head is not indicated. Low suspicion for intracranial process such as hemorrhage. Care significantly affected by the following chronic conditions: Hypertension. Response to treatment: the patient's symptoms have markedly improved after treatment. 07/17 05:00 Order name: CBC with Diff; Complete Time: 06:10 rt 07/17 05:00 Order name: CMP; Complete Time: 06:10 rt 07/17 05:00 Order name: Troponin High Sensitivity; Complete Time: 06:10 rt 07/17 05:00 Order name: Magnesium; Complete Time: 06:10 rt 07/17 05:00 Order name: Chest Single View XRAY rt 07/17 05:00 Order name: TSH; Complete Time: 06:10 rt 07/17 05:00 Order name: EKG; Complete Time: 05:01 rt 0202 05:00 Order name: EKG - Nurse/Tech; Complete Time: 05:35 rt EC:41 Rate is 66 beats/min. Rhythm is regular, Normal Sinus Rhythm with No ectopy. QRS Bazine rt is Normal. MA interval is normal. QRS interval is normal. QT interval is normal. No Q waves. T waves are Normal. No ST changes noted. Interpreted by me. Administered Medications: 05:22 Drug: amLODIPine 10 mg Route: PO; lg3 06:13 Follow up: Response: No adverse reaction; Blood pressure is lowered lg3 05:23 Drug: Ondansetron 4 mg Route: PO; lg3 06:13 Follow up: Response: No adverse reaction; Nausea is decreased lg3 Disposition Summary: 07/17/22 06:17 Discharge Ordered Location: Home rt Problem: an acute exacerbation rt Symptoms: have improved rt Condition: Stable rt Diagnosis - Essential (primary) hypertension rt Followup: rt - With: Private Physician - When: 2 - 3 days - Reason: Discharge Instructions: - Discharge Summary Sheet rt - Hypertension, Adult rt Forms: - Medication Reconciliation Form rt - Thank You Letter rt - Antibiotic Education rt - Prescription Opioid Use rt Prescriptions: - Norvasc 5 mg Oral Tablet - take 1 tablet by ORAL route once daily; 30 tablet; Refills: 0, Product rt Selection Permitted Signatures: Dispatcher [employer] Esther Pearson RN RN lg3 Jonathan Joel MD MD rt Corrections: (The following items were deleted from the chart) 05:07 05:05 PMHx: cancer X's 2-Uterine \T\ Skin; lg3 lg3
[2022-07-17 06:29] VITALS: TEMP 98.9
[2022-07-17 06:31] VITALS: O2SAT 98
[2022-07-17 06:32] VITALS: BP 155/97
--- NOTE | 2022-07-18 13:58 | RAD REPORT ---
EXAM DESCRIPTION: RAD - Chest Single View - 07/17/2022 5:50 am CLINICAL HISTORY: 77 years Female PALPITATIONS COMPARISON: None FINDINGS: Lung volumes adequate. Cardiac silhouette is normal. No pneumothorax. No large pleural effusion. No focal consolidation. No acute bony finding. IMPRESSION: No acute cardiopulmonary findings. Electronically signed by: Estrella Valdez MD 07/17/2022 5:57 AM MANAGER SCIENCE Due to temporary technical issues with the PACS/Fluency reporting system, reports are being signed by the in house radiologists without review as a courtesy to insure prompt reporting. The interpreting radiologist is fully responsible for the content of the report.
== END 2022-07-17 06:24 | disposition home or self-care (01) ==
LOC: ER 04:38
DX: I10 Essential (primary) hypertension (principal); Z88.5 Allergy status to narcotic agent; Z85.42 Personal history of malignant neoplasm of other parts of uterus
CPT/HCPCS: 93005; 85025; 36415; 83735; 84443; 84484; 80053; 71045; 99285; Q0162

== ENCOUNTER 2022-12-11 11:12 | Emergency (ER) | payer OTHER ==
--- OUTSIDE RECORDS SUMMARY | 2022-12-11 11:15 | XMS REPORT | Clinical Summary ---
:1945 Author Organization [facility] MD Jarrett [facility] Address [address] [place] [address] Care Team Providers Name Role Phone Douglas Ayala MD Unavailable Joseline Hernandez MD Primary Care Provider Afua Trammell DDS Unavailable [phone] Allergies Active Allergy Reactions Severity Noted Date [...] Added automatically from request for duong carol [id number] Hypertension 08/05/2018 Neuropathy 04/23/2017 FIGO EC stage [...] Vaccination (#1) 1945 Results Not on fileafter 12/11/2021 Insurance Payer Benefit Plan / Subscriber ID Effective Phone Address T ype Group Dates [employer] MEDICARE [id number] 2020-Prese [address] Medicare HEALTHCARE ADVANTAGE nt [place], [place] [employer] [id number] Care Teams Public Works Supervisor Relationship Specialty Start Date End Date Douglas Ayala PCP - External Follow Obstetrics/Gynecology 11/14 12/28 MD Jeffy Sweet [address] [place] [address], [address] [place], [place] [id number] Joseline Hernandez MD PCP - General Gynecologic Medical 12/03/17 [facility] On[facility] [place], [place] [id number] Afua Trammell Consulting Physician Dental Oncology 06/23/16 KRIS BecerraS [facility]5 [place], [place] [id number]
--- OUTSIDE RECORDS SUMMARY | 2022-12-11 11:15 | XMS REPORT | Continuity of Care Document ---
:1945 Author Organization [facility] t Address [address] [place] [address] [address] [place] [address] Care Team Providers Name Role Phone Joseline [...] 00:00: g of this [place] endometriu endometriu note MD corrine castle might be Tao garcia n from the Cancer original. Center Added automatic ally from request for surgery [id number] Hypertensi Hypertensi Disease Active U nivers on on 08-05 ity of 00:00: [place] 00 MD [facility] Neuropathy Neuropathy Disease Active 2016-06 U nivers 06-23 ity of 00:00: [place] 00 MD [facility] FIGO EC FIGO EC Disease Active Overview: Univ ers stage IIIB stage IIIB 12-04 Formattin ity of 00:00: g of this note might be Tao garcia n from [...] * [place] reaction 00 MD melchor dawkins [facility] Family History Family Member Diagnosis Comments Start Date Stop Date Source Natural mother [facility] mother Hypertension [facility]i ty [facility] Natural father -Thoracic or Lung [facility] [place] [facility] [place] Social History Social Habit Start Date Stop Date Quantity Comments Source Alcohol intake 2020-01-19 2020-01-19 Current University of 00:00:00 00:00:00 non-drinker of Yariel muse alcohol (finding) [facility] Tobacco use and 2016-01-24 2016-01-24 Smokeless tobacco Un iversity of exposure 00:00:00 00:00:00 non-user [place] MD Kolby mitchell [facility] Sex Assigned At [birth year] Universit y of 00:00:00 00:00:00 Yariel mitchell [facility] Smoking Status Start Date Stop Date Source Never smoked tobacco [facility] Medications Ordered Filled Start Stop Current Ordering Indication Dosage Frequency Signature Comments Components Source Medication Medication Date Date Medication? Clinician (SIG) Name Name escitalopra Yes 20mg Take 20 mg Univers m (LEXAPRO) 2-25 by mouth. ity of 20 mg 10:27: [place] tablet MD Tao dawkins [facility] escitalopra Yes 20mg Take 20 mg Univers m (LEXAPRO) 2-25 by mouth. ity of 20 mg 10:27: [place] tablet MD Tao dawkins [facility] escitalopra Yes 20mg Take 20 mg Univers m (LEXAPRO) 2-25 by mouth. ity of 20 mg 10:27: [place] tablet MD Anderso [facility] escitalopra Yes 20mg Take 20 mg Univers m (LEXAPRO) 2-25 by mouth. ity of 20 mg 10:27: [place] tablet MD Tao dawkins [facility] escitalopra Yes 20mg Take 20 mg Univers m (LEXAPRO) 2-25 by mouth. ity of 20 mg 10:27: [place] tablet MD Burger [facility] amLODIPine 2019-06 Yes TAKE 1 Unive rs (NORVASC) 1-24 TABLET BY ity o f 10 mg 00:00: MOUTH ONCE [place] tablet 00 DAILY FOR MD BLOOD Anderso PRESSURE [facility] amLODIPine 2019-06 Yes TAKE 1 Unive rs (NORVASC) 1-24 TABLET BY ity o f 10 mg 00:00: MOUTH ONCE [place] tablet 00 DAILY FOR MD BLOOD Anderso PRESSURE [facility] amLODIPine 2019-06 Yes TAKE 1 Unive rs (NORVASC) 1-24 TABLET BY ity o f 10 mg 00:00: MOUTH ONCE [place] tablet 00 DAILY FOR MD BLOOD Anderso PRESSURE [facility] amLODIPine 2019-06 Yes TAKE 1 Unive rs (NORVASC) 1-24 TABLET BY ity o f 10 mg 00:00: MOUTH ONCE [place] tablet 00 DAILY FOR MD BLOOD Anderso PRESSURE [facility] amLODIPine 2019-06 Yes TAKE 1 Unive rs (NORVASC) 1-24 TABLET BY ity o f 10 mg 00:00: MOUTH ONCE [place] tablet 00 DAILY FOR MD BLOOD Anderso PRESSURE [facility] Procedures This patient has no known procedures. [...] Facility Department ID 2022-03-08 2022-03-09 Emergency [place], [facility] [address] [facility] 12:49:00 01:36:00 LOAN 2021-12-26 2021-12-26 Outpatient JAMAR_LUIS MANUEL BEYER [facility] [address] 12:47:00 12:47:00 SSA [address] [facility] Program Results This patient has no known results.
--- NOTE | 2022-12-11 12:02 | EDPHYS ---
Physician Documentation [facility] Name: Ruby Chan Age: 77 yrs Sex: Female : 1945 Arrival Date: 12/11/2022 Time: 11:12 Bed 16 Private MD: ED Physician Jackson Meza HPI: 12/11 11:31 This 77 yrs old Female presents to ER via Ambulatory with complaints of Toe Injury. rn 11:31 The patient presents with an injury, pain. The complaints affect the right foot. Onset: rn The symptoms/episode began/occurred 6 day(s) ago. Modifying factors: The symptoms are alleviated by nothing, the symptoms are aggravated by weight bearing, movement. Severity of symptoms: At their worst the symptoms were moderate, in the emergency department the symptoms are unchanged. The patient has not experienced similar symptoms in the past. Pt reports kicked edge of bed 6 days ago, was "pointing to side", samara taped it and improved alignment but still hurts. No open wounds. No fever. . Historical: - Allergies: 11:27 Demerol; nj1 - PMHx: 11:27 Hypertension; melanoma; uterine cancer; nj1 - PSHx: 11:27 section; nj1 - Immunization history:: Client reports having NOT received the Covid vaccine. - Social history:: Smoking status: Patient denies any tobacco usage or history of. - Family history:: not pertinent. - Hospitalizations: : No recent hospitalization is reported. ROS: 11:31 MS/extremity: Positive for pain, swelling, Negative for erythema, laceration, rn paresthesias, puncture, warmth. Exam: 11:31 Constitutional: This is a well developed, well nourished patient who is awake, alert, rn and in no acute distress. MS/ Extremity: Pulses equal, no cyanosis. Neurovascular intact. + mild pain at base of 5th toe, no open wounds, no warmth, no redness. Vital Signs: 11:16 BP 165 / 89; Pulse 67; Resp 18; Temp 99.3(O); Pulse Ox 96% on R/A; Weight 83.91 kg; nj1 Height 5 ft. 10 in. ; Pain 5/10; 12:42 BP 142 / 80; Pulse 58; Resp 16; Pulse Ox 95% ; bp 11:16 Body Mass Index 26.54 (83.91 kg, 177.8 cm) nj1 11:16 Pain Scale: Adult nj1 MDM: 11:14 Patient medically screened. rn 12:00 Differential diagnosis: fracture, sprain. Data reviewed: vital signs, nurses notes, rn radiologic studies, plain films, and as a result, I will discharge patient. Independent interpretation of the following test(s) in the Emergency Department X-Ray: My interpretation is Xray images right foot show oblique 5th toe fracture without significant displacement. Counseling: I had a detailed discussion with the patient and/or guardian regarding: the historical points, exam findings, and any diagnostic results supporting the discharge/admit diagnosis, radiology results, the need for outpatient follow up, to return to the emergency department if symptoms worsen or persist or if there are any questions or concerns that arise at home. Special discussion: I discussed with the patient/guardian in detail that at this point there is no indication for admission to the hospital. It is understood, however, that if the symptoms persist or worsen the patient needs to return immediately for re-evaluation. 12/11 11:23 Order name: XRAY Foot RIGHT 3 View; Complete Time: 12:12 rn 12/11 11:23 Order name: Post-op Orthopedic Shoe; Complete Time: 12:41 rn Administered Medications: No medications were administered Disposition Summary: 12/11/22 12:02 Discharge Ordered Location: Home rn Problem: new rn Symptoms: have improved rn Condition: Stable rn Diagnosis - Nondisplaced fracture of proximal phalanx of left lesser toe(s) - right foot, 5th rn toe Followup: rn - With: Jarret Smith MD - When: As needed - Reason: Recheck today's complaints, Re-evaluation by your physician Discharge Instructions: - Discharge Summary Sheet rn - Toe Fracture rn Forms: - Medication Reconciliation Form rn - Thank You Letter rn - Antibiotic overnight caregiver - Prescription Opioid Use rn - [email or web address] rn Signatures: Dispatcher [employer] Jackson Crowley MD MD rn Jaco, Norma, RN RN nj1
--- NOTE | 2022-12-11 12:02 | ER ---
Nurse's Notes [facility] Name: Ruby Chan Age: 77 yrs Sex: Female : 1945 Arrival Date: 12/11/2022 Time: 11:12 Bed 16 Private MD: Diagnosis: Nondisplaced fracture of proximal phalanx of left lesser toe(s)-right foot, 5th toe Presentation: 12/11 11:16 Chief complaint: Patient states: Right 5th toe pain. She hit toe "got caught up" on bed nj1 last Thursday. Pain ever since. 11:16 Coronavirus screen: Vaccine status: Patient reports being unvaccinated. Ebola Screen: [facility] Patient denies travel to an Ebola-affected area in the 21 days before illness onset. Initial Sepsis Screen: Does the patient meet any 2 criteria? No. Patient's initial sepsis screen is negative. Does the patient have a suspected source of infection? No. Patient's initial sepsis screen is negative. Risk Assessment: Do you want to hurt yourself or someone else? Patient reports no desire to harm self or others. Onset of symptoms was December 05, 2022. 11:16 Method Of Arrival: Ambulatory [facility] 11:16 Acuity: CHALINO 4 nj1 Triage Assessment: 11:20 General: Appears in no apparent distress. comfortable, Behavior is calm, cooperative, nj1 appropriate for age. 11:20 Pain: Complains of pain in right fifth toe Pain currently is 5 out of 10 on a pain nj1 scale. Aggravated by repositioning, weight bearing. Neuro: Level of Consciousness is awake, alert, obeys commands, Oriented to person, place, time, situation. Cardiovascular: Patient's skin is warm and dry. Respiratory: Airway is patent Respiratory effort is even, unlabored. Musculoskeletal: Reports pain in right fifth toe since Thursday. Musculoskeletal: Swelling present in right fifth toe. Historical: - Allergies: 11:27 Demerol; nj1 - PMHx: 11:27 Hypertension; melanoma; uterine cancer; nj1 - PSHx: 11:27 section; nj1 - Immunization history:: Client reports having NOT received the Covid vaccine. - Social history:: Smoking status: Patient denies any tobacco usage or history of. - Family history:: not pertinent. - Hospitalizations: : No recent hospitalization is reported. Screenin:29 [facility] ED Fall Risk Assessment (Adult) History of falling in the last 3 months, [facility] including since admission No falls in past 3 months (0 pts) Confusion or Disorientation No (0 pts) Intoxicated or Sedated No (0 pts) Impaired Gait No (0 pts) Mobility Assist Device Used No (0 pt) Altered Elimination No (0 pt) Score/Fall Risk Level 0 - 2 = Low Risk Oriented to surroundings, Maintained a safe environment, Hourly rounding (assess needs \\T\\ fall precautionary measures) done. Abuse screen: Denies threats or abuse. Denies injuries from another. Nutritional screening: No deficits noted. Tuberculosis screening: No symptoms or risk factors identified. Assessment: 11:20 General: SEE TRIAGE NOTE. bp 12:42 Reassessment: DC HOME AMBULATORY. bp Vital Signs: 11:16 BP 165 / 89; Pulse 67; Resp 18; Temp 99.3(O); Pulse Ox 96% on R/A; Weight 83.91 kg; nj Height 5 ft. 10 in. ; Pain 5/10; 12:42 BP 142 / 80; Pulse 58; Resp 16; Pulse Ox 95% ; bp 11:16 Body Mass Index 26.54 (83.91 kg, 177.8 cm) [facility] 11:16 Pain Scale: Adult [facility] ED Course: 11:14 Patient arrived in ED. im 11:14 Jackson Meza MD is Attending Physician. rn 11:16 Maged Lemon, ALLAN is Primary Nurse. bp 11:20 Patient has correct armband on for positive identification. Bed in low position. Call [facility] light in reach. 11:27 Triage completed. [facility] 11:27 Arm band placed on left wrist. [facility] 12:01 Jarret Smith MD is Referral Physician. rn 12:04 XRAY Foot RIGHT 3 View In Process Unspecified. EDMS 12:42 No provider procedures requiring assistance completed. Patient did not have IV access bp during this emergency room visit. Ortho shoe applied to right foot. Administered Medications: No medications were administered Medication: 12:42 VIS not applicable for this client. bp Outcome: 12:02 Discharge ordered by . rn 12:42 Discharged to home ambulatory. bp 12:42 Condition: stable 12:42 Discharge instructions given to patient, Instructed on discharge instructions, follow up and referral plans. Demonstrated understanding of instructions, follow-up care. 12:43 Patient left the ED. bp Signatures: Dispatcher [employer] Jackson Crowley MD MD rn Peltier, Brian RN RN bp Dilcia Egan RN RN nj1 Mamta Berry
--- NOTE | 2022-12-11 12:08 | RAD REPORT ---
EXAM DESCRIPTION: RAD - Foot Right 3 View - 12/11/2022 12:03 pm CLINICAL HISTORY: injury to right 5th toe COMPARISON: <Comparisons> FINDINGS: Oblique fracture is seen proximal phalanx of the fifth toe. No significant displacement. L arge plantar calcaneal spur.
[2022-12-11 12:48] VITALS: TEMP 99.3
[2022-12-11 12:50] VITALS: BP 142/80; O2SAT 95
== END 2022-12-11 12:43 | disposition home or self-care (01) ==
LOC: ER 11:12
DX: S92.514A Nondisplaced fracture of proximal phalanx of right lesser toe(s), initial encounter for closed fracture (principal); Z88.5 Allergy status to narcotic agent
CPT/HCPCS: 99283

== ENCOUNTER 2023-06-06 17:08 | Observation (INO) | payer OTHER ==
--- OUTSIDE RECORDS SUMMARY | 2023-06-06 17:12 | XMS REPORT | Clinical Summary ---
Author Name Unknown Organization [facility] Address [address] [place] [address] Care Team Providers Care Endbander Name Role Phone Douglas Ayala MD Unavailable [phone] Joseline Hernandez MD Primary Care Provider [phone] Afua Trammell DDS Unavailable [phone] Rodo Nickerson MD Unavailable Blanca Borrego MD Unavailable [phone] Gretta Diaz MD Unavailable Allergies Active Allergy Reactions Criticality Noted Date Comments Carboplatin Itching,Swelling,Oth er (See Comments) Medium 08/07/2016 Delayed reaction - 24 hours post tx; facial erythema and pruritis, tongue and lip swelling Meperidine 01/24/2016 * sensitive* Medications Medication Sig Dispensed Refills Start Date End Date Status amLODIPine (NORVASC) 10 mg tablet TAKE 1 TABLET BY MOUTH ONCE DAILY FOR BLOOD PRESSURE 0 05/08/2020 Active escitalopram (LEXAPRO) 20 mg tablet Take 20 mg by mouth. 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 Please assist. (Calling to schedule a follow up with dr Hernandez. 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 Neuropathy 04/23/2017 Hypertension 06/15/2003 Urge incontinence Family History Medical History Relation Name Comments -Thoracic or Lung Father Sarahy Rodgers lung/smo ker Hypertension Mother Ruby Rodgers Stroke Mother Ruby Rodgers Relation Name Status Comments Father Sarahy Rodgers Mother Ruby Rodgers Social History Tobacco Use Types Packs/Day Years Used Date Smoking Tobacco: Never Smokeless Tobacco: Never Tobacco Cessation:Counseling Given: No Alcohol Use Standard Drinks/Week Comments No 0 (1 standard drink = 0.6 oz pur e alcohol) Sex and Gender Information Value Date Recorded Sex Assigned at Not on file Gender Identity Not on file Sexual Orientation Not on file Job Start Date Occupation Industry Not on file Not on file Not on file Obstetrics History Para Term AB IAB SAB Ectopic Multiple Livin g Live Births 2 2 2 0 0 0 0 0 0 0 0 Date Outcome GA Total Labor Labor/2nd/3rd Weight Sex Delivery Anes PTL [place] A1 A5 Name Cl in Term Term Plan of Treatment Health Maintenance Due Date Last Done Comments COVID-19 Vaccination (#1) 1945 Care Teams Endbander Relationship Specialty Start Date End Date Douglas Ayala MD [address] [place] [address], [facility] [address] [place], [place] [id number] PCP - External Follow Up A Obstetrics/Gynecology 12/10/15 Joseline Hernandez MD [address] [place] [address] PCP - General Gynecologic Medical Oncology 12/03/17 Afua Trammell, DDS [address] [place] [id number] Consulting Physician Dental Oncology 06/23/16 Rodo Nickerson MD [address] [place] [id number] Consulting Physician Internal Medicine 08/22/19 Blanca Borrego MD [address] [place] [address] Consulting Physician Radiation Oncology 01/30/16 Gretta Diaz MD [address] [place] [id number] Consulting Physician Dermatology 09/25/16
[2023-06-06 18:34] LABS: MCV 85.7 fL (80-100)
[2023-06-06 18:43] LABS: Potassium 4.4 mEq/L (3.5-5.1)
[2023-06-06 18:54] LABS: Absolute Lymphocytes (CBC) 1.5 K/uL (0.7-4.9); Hematocrit 38.2 % (36.0-45.0); Lymphocytes % 23.9 % (15.3-44.8); MPV 8.4 fL (7.6-11.3); Platelets 166 thou/uL (152-406); RBC Red Blood Cell Count 4.45 M/uL (3.86-4.86)
--- NOTE | 2023-06-06 20:04 | RAD REPORT ---
EXAM DESCRIPTION: CT - Soft Tissue Neck W/Contr - 06/06/2023 7:12 pm CLINICAL HISTORY: Neck pain with sore throat COMPARISON: None. TECHNIQUE: Computed axial tomography of the neck was obtained. 50 cc Isovue 300 was administered in travenously. Coronal and sagittal reconstruction was performed. All CT scans are performed using dose optimization technique as appropriate and may include automated exposure control or mA/KV adjustment according to patient size. FINDINGS: Epiglottis and aryepiglottic folds are thickened The parotid, submandibular and thyroid glands appear unremarkable. No lymphadenopathy is seen No fluid within the sinuses/mastoids IMPRESSION: Epiglottis and aryepiglottic folds are thickened having the appearance of epiglottitis. Zara Efrem was notified 7:59 p.m. 06/06/2023
--- NOTE | 2023-06-06 20:12 | EDPHYS ---
Physician Documentation [facility] Name: Ruby Chan Age: 77 yrs Sex: Female : 1945 Arrival Date: 06/06/2023 Time: 17:08 Bed 16 Private MD: ED Physician Colby Pantoja HPI: 06/06 17:41 This 77 yrs old Female presents to ER via Unassigned with complaints of Sore Throat, sb4 Swollen Glands. 17:41 The patient presents with sore throat, dysphagia, of both solids and liquids. Onset: sb4 The symptoms/episode began/occurred this morning. Associated signs and symptoms: Pertinent positives: Sore throat Pertinent negatives chest pain, chills, earache, fever, flu-like symptoms, headache. The patient has not experienced similar symptoms in the past. patient states she woke up with a sore throat this morning and now says her neck is swollen. she states she is having a hard time swallowing. no other symptoms, no fever, chest pain, shortness of breath, cough, sinus congestion. Historical: - Allergies: 18:04 Demerol; jl7 - PMHx: 18:04 Hypertension; melanoma; uterine cancer; jl7 - PSHx: 18:04 section; jl7 - Immunization history:: Adult Immunizations unknown. - Social history:: Smoking status: Patient denies any tobacco usage or history of. ROS: 17:41 Constitutional: Negative for fever, chills, and weight loss, sb4 17:41 ENT: Positive for sore throat, 17:41 Neck: Positive for swelling, 17:41 All other systems are negative, Exam: 17:41 Constitutional: This is a well developed, well nourished patient who is awake, alert, sb4 and in no acute distress. Head/Face: Normocephalic, atraumatic. Eyes: Extra-ocular motions intact. Periorbital areas with no swelling, redness, or edema. Cardiovascular: Regular rate and rhythm with a normal S1 and S2. Respiratory: Lungs have equal breath sounds bilaterally, clear to auscultation and percussion. No rales, rhonchi or wheezes noted. No increased work of breathing, no retractions or nasal flaring. Abdomen/GI: Soft, non-tender, no distension. Skin: Warm, dry with normal turgor. Normal color with no rashes, no lesions, and no evidence of cellulitis. MS/ Extremity: Pulses equal, no cyanosis. Neurovascular intact. Full, normal range of motion. Neuro: Awake and alert, GCS 15, oriented to person, place, time, and situation. Motor strength 5/5 in all extremities. Sensory grossly intact. 17:41 ENT: Posterior pharynx: Uvula: edematous, erythema, erythema, that is mild, 17:41 Neck: External neck: swelling, that is moderate, of the right anterior aspect of neck and left anterior aspect of neck, Vital Signs: 18:03 BP 132 / 86; Pulse 78; Resp 17; Temp 98.8; Pulse Ox 97% ; Weight 79.38 kg; Height 5 ft. jl7 9 in. ; Pain 0/10; 20:30 BP 135 / 80; Pulse 69; Pulse Ox 98% on R/A; Pain 0/10; tm6 21:00 BP 138 / 79; Pulse 58; Pulse Ox 95% on R/A; Pain 0/10; tm6 22:00 BP 128 / 70; Pulse 79; Pulse Ox 93% on R/A; Pain 0/10; tm6 18:03 Body Mass Index 25.84 (79.38 kg, 175.26 cm) jl7 18:03 Pain Scale: Adult jl7 20:30 Pain Scale: Adult tm6 21:00 Pain Scale: Adult tm6 22:00 Pain Scale: Adult tm6 MDM: 17:22 Patient medically screened. sb4 17:41 Differential diagnosis: group A strep tonsillitis, laryngitis, peritonsillar abscess sb4 pharyngitis, tonsillitis, tracheobronchitis, upper respiratory infection, uvulitis. 20:10 Data reviewed: vital signs, nurses notes, lab test result(s), radiologic studies, and sb4 as a result, I will admit patient. Consideration of Admission/Observation Patient was admitted/placed on observation. Management of patient was discussed with the following: Hospitalist: dr mckenna. Discussion of test interpretation with radiology: I had a discussion with radiology regarding a test interpretation. dr stewart notified me with results of CT having the appearance of epiglottitis. Care significantly affected by the following chronic conditions: Hypertension. Counseling: I had a detailed discussion with the patient and/or guardian regarding the historical points, exam findings, and any diagnostic results supporting the discharge/admit diagnosis, lab results, radiology results, the need for further work-up and treatment in the hospital. 06/06 17:40 Order name: Strep sb4 06/06 17:40 Order name: CBC with Diff; Complete Time: 18:58 sb4 06/06 17:40 Order name: BMP; Complete Time: 18:45 sb4 06/06 18:36 Order name: Throat Culture EDVT 06/06 20:04 Order name: Blood Culture Adult (2) sb4 06/06 17:40 Order name: Soft Tissue Neck W/Contr CT; Complete Time: 20:08 sb4 06/06 17:40 Order name: IV Start; Complete Time: 18:14 sb4 06/06 20:19 Order name: O2 Sat Monitoring; Complete Time: 20:48 sb4 Administered Medications: 21:15 Drug: Rocephin IV 1 grams IV at calculated rate once; Given slow IV push per pharmacy tm6 instructions Route: IV; Rate: calculated rate; Site: left antecubital; 21:21 Drug: vancoMYCIN IVPB 1 grams IVPB once over 2 hrs Route: IVPB; Infused Over: 2 hrs; tm6 Site: left antecubital; Disposition Summary: 06/06/23 20:11 Hospitalization Ordered Notes: Hospitalization Status: Observation sb4 Provider: Woodrow Mckenna sb4 Condition: Fair sb4 Problem: new sb4 Symptoms: are unchanged sb4 Bed/Room Type: Standard sb4 Location: Telemetry/MedSurg (Inpatient)(06/07/23 12:53) sp Room Assignment: [facility](06/07/23 12:53) sp Diagnosis - acute epiglottitis sb4 Forms: - Medication Reconciliation Form sb4 - SBAR form sb4 - Leadership Thank You Letter sb4 Signatures: Dispatcher [employer] EDMS Zofia Maher Cindy, RN RN Enrrique Cummings RN RN Zara Hyde PAAryan PAAryan sb4 Anneliese Vazquez RN RN tm6 Corrections: (The following items were deleted from the chart) 21:03 20:11 Telemetry/MedSurg (observation) sb4 cg 21:03 20:11 sb4 06/07 1206/06 21:03 BR ER HOLD cg sp 06/07 1206/06 21:03 ERHOLD- cg sp
--- NOTE | 2023-06-06 20:12 | ER ---
Nurse's Notes [facility] Name: Ruby Chan Age: 77 yrs Sex: Female : 1945 Arrival Date: 06/06/2023 Time: 17:08 Bed 16 Private MD: Diagnosis: acute epiglottitis Presentation: 06/06 18:03 Chief complaint: Patient states: Woke with swollen tonsils and uvula. Coronavirus jl7 screen: At this time, the client does not indicate any symptoms associated with coronavirus-19. Ebola Screen: No symptoms or risks identified at this time. Initial Sepsis Screen: Does the patient meet any 2 criteria? No. Patient's initial sepsis screen is negative. Does the patient have a suspected source of infection? No. Patient's initial sepsis screen is negative. Risk Assessment: Do you want to hurt yourself or someone else? Patient reports no desire to harm self or others. Onset of symptoms was June 06, 2023. 18:03 Method Of Arrival: Ambulatory [facility] 18:03 Acuity: CHALINO 3 jl7 Historical: - Allergies: 18:04 Demerol; jl7 - PMHx: 18:04 Hypertension; melanoma; uterine cancer; jl7 - PSHx: 18:04 section; jl7 - Immunization history:: Adult Immunizations unknown. - Social history:: Smoking status: Patient denies any tobacco usage or history of. Screenin:00 [facility] ED Fall Risk Assessment (Adult) History of falling in the last 3 months, jw7 including since admission No falls in past 3 months (0 pts) Score/Fall Risk Level 0 - 2 = Low Risk Oriented to surroundings, Maintained a safe environment. Abuse screen: Denies threats or abuse. Denies injuries from another. Nutritional screening: No deficits noted. Tuberculosis screening: No symptoms or risk factors identified. Assessment: 19:00 General: Appears in no apparent distress. comfortable, Behavior is calm, cooperative. jw7 Pain: Complains of pain in throat Pain does not radiate. Pain currently is 1 out of 10 on a pain scale. Quality of pain is described as stinging, Pain began suddenly, Is continuous. Neuro: Parker Agitation-Sedation Scale (RASS): 0 - Alert and Calm Level of Consciousness is awake, alert, obeys commands, Oriented to person, place, time, situation. Cardiovascular: Capillary refill < 3 seconds Clubbing of nail beds is absent JVD is absent Patient's skin is warm and dry. Respiratory: Airway is patent Trachea midline Respiratory effort is even, unlabored, Respiratory pattern is regular, symmetrical, Breath sounds are clear bilaterally. GI: No deficits noted. No signs and/or symptoms were reported involving the gastrointestinal system. : No deficits noted. No signs and/or symptoms were reported regarding the genitourinary system. EENT: Throat is reddened. Derm: No deficits noted. No signs and/or symptoms reported regarding the dermatologic system. Musculoskeletal: No deficits noted. No signs and/or symptoms reported regarding the musculoskeletal system. 20:30 Reassessment: Patient appears in no apparent distress at this time. Patient and/or tm6 family updated on plan of care and expected duration. Pain level reassessed. Patient is alert, oriented x 3, equal unlabored respirations, skin warm/dry/pink. 21:00 Reassessment: Patient is alert, oriented x 3, equal unlabored respirations, skin tm6 warm/dry/pink. 22:00 Reassessment: Patient and/or family updated on plan of care and expected duration. Pain tm6 level reassessed. Patient is alert, oriented x 3, equal unlabored respirations, skin warm/dry/pink. Patient states feeling better. 22:59 Reassessment: patient placed in hospital bed and gown. 6 Vital Signs: 18:03 BP 132 / 86; Pulse 78; Resp 17; Temp 98.8; Pulse Ox 97% ; Weight 79.38 kg; Height 5 ft. jl7 9 in. ; Pain 0/10; 20:30 BP 135 / 80; Pulse 69; Pulse Ox 98% on R/A; Pain 0/10; tm6 21:00 BP 138 / 79; Pulse 58; Pulse Ox 95% on R/A; Pain 0/10; tm6 22:00 BP 128 / 70; Pulse 79; Pulse Ox 93% on R/A; Pain 0/10; tm6 18:03 Body Mass Index 25.84 (79.38 kg, 175.26 cm) jl7 18:03 Pain Scale: Adult jl7 20:30 Pain Scale: Adult tm6 21:00 Pain Scale: Adult tm6 22:00 Pain Scale: Adult 6 ED Course: 17:12 Patient arrived in ED. ts1 17:19 Zara Topete PA-C is PHCP. sb4 17:19 Colby Pantoja MD is Attending Physician. sb4 18:04 Triage completed. jl7 18:04 Arm band placed on right wrist. Patient placed in waiting room, Patient notified of jl7 wait time. 18:14 Initial lab(s) drawn, by me, sent to lab. Strep swab sent to lab. Inserted saline lock: jl7 22 gauge in right antecubital area, using aseptic technique. Blood collected. 19:00 Patient has correct armband on for positive identification. Bed in low position. Call jw7 light in reach. Side rails up X2. 19:13 Soft Tissue Neck W/Contr CT In Process Unspecified. EDMS 19:55 Zabrina Bruno, RN is Primary Nurse. jw7 20:11 Woodrow Mckenna MD is Hospitalizing Provider. sb4 22:30 No provider procedures requiring assistance completed. Inserted saline lock: 20 gauge tm6 in left antecubital area, using aseptic technique. 22:31 Provided Education on: plan of care. Client placed on continuous cardiac and pulse tm6 oximetry monitoring. NIBP monitoring applied. 22:31 Patient admitted, IV remains in place. tm6 Administered Medications: 21:15 Drug: Rocephin IV 1 grams IV at calculated rate once; Given slow IV push per pharmacy tm6 instructions Route: IV; Rate: calculated rate; Site: left antecubital; 21:21 Drug: vancoMYCIN IVPB 1 grams IVPB once over 2 hrs Route: IVPB; Infused Over: 2 hrs; tm6 Site: left antecubital; Medication: 22:31 VIS not applicable for this client. tm6 Outcome: 20:11 Decision to Hospitalize by Provider. sb4 22:31 Admitted to ER Hold. Please see [facility] for further documentation. tm6 22:31 Condition: stable 22:31 Instructed on the need for admit, 06/07 16:22 Patient left the ED. rs5 Signatures: Dispatcher [employer] EDMS Enrrique Kwan, ALLAN LEMUS jl7 Zabrina Bruno RN RN jw7 Zara Topete PA-C PA-C sb4 Florin Stroud RN RN rs5 Tammy Kirk PAS PAS ts1 George, Tawney, RN RN tm6
[2023-06-06] MEDS ORDERED: CEFTRIAXONE 1000 MG/VIAL ONE (20:23)
[2023-06-06] MEDS ORDERED: VANCOMYCIN 1 GM/VIAL ONE (20:23)
[2023-06-06] MEDS ORDERED: NA CHLORIDE 0.9% 50 ML ONE (20:24)
[2023-06-06] MEDS ORDERED: NA CHLORIDE 0.9% 250 ML ONE (20:24)
[2023-06-06] MEDS ORDERED: ACETAMINOPHEN 325 MG TABLET PO PRN (20:38)
[2023-06-06] MEDS ORDERED: ONDANSETRON 4 MG/2 ML VIAL IV PRN (20:38)
--- NOTE | 2023-06-06 20:38 | P.HP ---
Certification for Inpatient Patient admitted to: Observation With expected LOS: <2 Midnights Practitioner: I am a practitioner with admitting privileges, knowledge of patient current condition, hospital course, and medical plan of care. Services: Services provided to patient in accordance with Admission requirements found in Title 42 Section 412.3 of the Code of Federal Regulations Patient History Date of Service: 06/07/23 Reason for admission: Epiglottitis, sore throat. History of Present Illness: 77-year-old female patient who has no significant medical history was evaluated in ED for episode of surgery. She reports that surgery started the day of presentation and she felt a sensation of airway closing so she decided to come to the ED. She has no issues with fever, chills, change in voice. She had a CT of the head and neck done that showed epiglottic inflammation with tonsillitis without abscess formation or lymphadenopathy. She was given pain control medication and IV antibiotic therapy and was pancultured. She was admitted for observation and treatment. Allergies meperidine [From Demerol] Adverse Reaction (Verified 06/06/23 23:52) Shortness of breath Review of Systems General: Malaise Eyes: Unremarkable ENT: Throat Pain Respiratory: Unremarkable Cardiovascular: Unremarkable Gastrointestinal: Unremarkable Genitourinary: Unremarkable Musculoskeletal: Unremarkable Integumentary: Unremarkable Neurological: Unremarkable Lymphatics: Unremarkable Physical Examination - Physical Exam General: Alert, Oriented x3 HEENT: Atraumatic Neck: Supple Respiratory: Normal air movement Cardiovascular: Normal pulses, Regular rate/rhythm Gastrointestinal: Soft and benign Musculoskeletal: No swelling Neurological: Normal speech - Studies Laboratory Data (last 24 hrs) 06/06/23 06/06/23 18:12 18:12 WBC 6.20 Hgb 12.6 Hct 38.2 Plt Count 166 Sodium 137 Potassium 4.4 BUN 21 H Creatinine 1.04 H Glucose 99 Microbiology Data (last 24 hrs): 06/06/23 18:12 Throat Group A Streptococcus Rapid Screen - Final Assessment and Plan - Plan Epiglottitis/tonsillitis: Patient has significant finding clinically however labs are nonconcerning. CT did not show significant abscess collection but there is inflammation. Continue pain control with Tylenol. Continue Rocephin for management. Will evaluate for clinical resolution. Prophylaxis: Lovenox for DVT prophylaxis CODE STATUS: Full code Disposition: Will discharge once clinically stable. - Advance Directives Does patient have a Living Will: No Does patient have a Durable POA for Healthcare: No
[2023-06-06] MEDS: NA CHLORIDE 0.9% 1,000 ML IV SCH (21:00)
[2023-06-06 23:21] VITALS: BMI 25.8
[2023-06-06] MEDS ORDERED: NA CHLORIDE 0.9% 1,000 ML ONE (23:21)
[2023-06-07 00:39] VITALS: O2SAT 93
[2023-06-07] MEDS: CEFTRIAXONE 1,000 MG in NA CHLORIDE 0.9% 50 ML IVPB SCH (09:00)
[2023-06-07] MEDS: ENOXAPARIN 40 MG/0.4 ML SQ SCH (09:00)
[2023-06-07] MEDS ORDERED: ENOXAPARIN 40 MG/0.4 ML SQ ONE (10:56)
[2023-06-07] MEDS ORDERED: NA CHLORIDE 0.9% 1,000 ML ONE (10:56)
[2023-06-07] MEDS ORDERED: CEFTRIAXONE 1000 MG/VIAL ONE (10:56)
[2023-06-07] MEDS: NA CHLORIDE 0.9% 1,000 ML IV SCH (15:36)
[2023-06-08] MEDS: NA CHLORIDE 0.9% 1,000 ML IV SCH (04:48)
--- NOTE | 2023-06-08 08:55 | P.DS ---
Admission Date: 06/06/23 Discharge Date: 06/08/23 Disposition: ROUTINE DISCHARGE Discharge Condition: GOOD Reason for Admission: Epiglottitis, sore throat. Brief History of Present Illness: Patient is 77 years of age admitted with epiglottitis and a sore throat Hospital Course: Patient was admitted to the hospital CT scan confirmed epiglottitis started was doing much better eating and drinking no fever sore throat improved swelling decreased signs all stable clear phonation was also normal start home on Augmentin primary care doctor Vital Signs/Physical Exam: Temp Pulse Resp BP Pulse Ox 97.1 F 61 16 150/73 H 96 06/08/23 04:00 06/08/23 04:00 06/08/23 04:00 06/08/23 04:00 06/08/23 04:00 Laboratory Data at Discharge: WBC 6.20 thou/uL (4.3-10.9) 06/06/23 18:12 Hgb 12.6 g/dL (12.0-15.0) 06/06/23 18:12 Hct 38.2 % (36.0-45.0) 06/06/23 18:12 Plt Count 166 thou/uL (152-406) 06/06/23 18:12 Sodium 137 mEq/L (136-145) 06/06/23 18:12 Potassium 4.4 mEq/L (3.5-5.1) 06/06/23 18:12 BUN 21 mg/dL (7-18) H 06/06/23 18:12 Creatinine 1.04 mg/dL (0.55-1.02) H 06/06/23 18:12 Glucose 99 mg/dL (74-106) 06/06/23 18:12 Home Medications: Amlodipine [Norvasc*] 1 tab PO DAILY 06/07/23 Atorvastatin Calcium [Lipitor*] 1 tab PO DAILY 06/07/23 Amox/Clavulanate [Augmentin 875-125 Tab] 875 mg PO BID 7 Days #14 tab 06/08/23 New Medications: Amox/Clavulanate [Augmentin 875-125 Tab] 875 mg PO BID 7 Days #14 tab Physician Discharge Instructions: Diagnosis IMPRESSION: Epiglottis and aryepiglottic folds are thickened having the appearance of epiglottitis. discharge on Augmentin. Pres faxed to Patrizia Kendall/luis enrique gordon MD 1-2 wks No restrictions., Diet as tolerated Diet: Regular Activity: Ad glen Followup: Unknown,U [Primary Care Provider] -
[2023-06-08] MEDS: CEFTRIAXONE 1,000 MG in NA CHLORIDE 0.9% 50 ML IVPB SCH (09:32)
[2023-06-08] MEDS: ENOXAPARIN 40 MG/0.4 ML SQ SCH (09:32)
[2023-06-08 10:52] VITALS: BP 167/75; TEMP 97.2
== END 2023-06-08 12:00 | disposition home or self-care (01) ==
LOC: ER 17:08 → ERHOLD 20:38 → 4TH 06-07 14:41
PROVIDERS: ADMIT Internal Medicine Nephrology; ATTEND Internal Medicine Sleep Medicine
DX: J05.10 Acute epiglottitis without obstruction (principal); J02.9 Acute pharyngitis, unspecified; J03.90 Acute tonsillitis, unspecified; Z88.5 Allergy status to narcotic agent
CPT/HCPCS: 87040 ×2; 87070; 85025; 80048; 36415; 87081; 70491; 96375; 96374; 99285; Q9967; J1650 ×2; J7050; J7030 ×4; J0696 ×3; G0378 ×5

== ENCOUNTER 2024-05-27 23:09 | Emergency (ER) | payer OTHER ==
--- OUTSIDE RECORDS SUMMARY | 2024-05-27 23:12 | XMS REPORT | Clinical Summary ---
Author Name Unknown Organization [facility] Address [address] [place] [address] Care Team Providers Care Skin Installer Name Role Phone Douglas Ayala MD Unavailable [phone] Joseline Hernandez MD Primary Care Provider [phone] Afua Trammell DDS Unavailable [phone] Rodo Nickerson MD Unavailable Blanca Borrego MD Unavailable [phone] Gretta Diaz MD Unavailable Allergies Active Allergy Reactions Criticality Noted Date Comments Carboplatin Itching,Swelling,Oth er (See Comments) Medium 08/07/2016 Delayed reaction - 24 hours post tx; facial erythema and pruritis, tongue and lip swelling Meperidine 01/24/2016 * sensitive* Medications * This document contains information received from the source organization and may not represent a complete record from that organization. amLODIPine (NORVASC) 10 mg tablet TAKE 1 TABLET BY MOUTH ONCE DAILY FOR BLOOD PRESSURE 05/08/2020 Active escitalopram (LEXAPRO) 20 mg tablet Take 20 mg by mouth. 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 Cancer Staging:Clinical stage from 12/06/2015:Stage IIIB(Primary) - Unsigned Overview (08/06/2017): Adenocarcinoma of uterus Surgical History Surgery Date [...] drink = 0.6 oz pur e alcohol) Comments No Sex and Gender Information Value Date Recorded Sex Assigned at Not on file Legal Sex Female 9:57 AM CDT Gender Identity Not on file Sexual Orientation Not on file Occupation Industry Job Start Date Job End Date teacher Not on file Not on file Not on file Obstetrics History Para Term AB IAB SAB Ectopic Multiple Livin g Live Births 2 2 2 0 0 0 0 0 0 0 0 Date Outcome GA Total Labor Labor/2nd/3rd Weight Sex Type Anes PTL Cary A1 A5 Name Clin Term Term Plan of Treatment Health Maintenance Due Date Last Done Comments Pneumococcal Vaccine: 65+ Years (1 of 1 - PCV) 013 COVID-19 Vaccine (2023- season) 2024 Influenza Vaccine (#1) 2024 Insurance [facility] MEDICARE ADVANTAGE MEDICARE ADVANTAGE Care Teams Skin Installer Relationship Specialty Start Date End Date Douglas Ayala MD [address] [place] [address], [address] [place] [address] PCP - External Follow Up A Obstetrics/Gynecology 12/10/15 Joseline Hernandez MD [address] [place] [id number] [email or web address] PCP - General Gynecologic Medical Oncology 12/03/17 Afua Trammell DDS [address] [place] [id number] [email or web address] Consulting Physician Dental Oncology 06/23/16 Rodo Nickerson MD [address] [place] [id number] [email or web address] Consulting Physician Internal Medicine 08/22/19 Blanca Borrego MD [address] [place] [id number] [email or web address] Consulting Physician Radiation Oncology 01/30/16 Gretta Diaz MD [address] [place] [id number] [email or web address] Consulting Physician Dermatology 09/25/16
[2024-05-28 00:46] LABS: Nucleated Red Blood Cells % 0.1 % (0-0); Red Cell Distribution Width 14.4 % (12.1-15.2)
[2024-05-28 00:59] LABS: Absolute Eosinophils 0.2 K/uL (0-0.5); Absolute Lymphocytes (CBC) 1.5 K/uL (0.7-4.9); Absolute Monocytes 0.5 K/uL (0.1-1.3); Absolute Neutrophil 3.6 K/uL (1.8-8.0); Basophils % 0.7 % (0-1.3); Eosinophils % 3.5 % (0-4.4); Hematocrit 36.5 % (36.0-45.0); Hemoglobin 12.3 g/dL (12.0-15.0); Lymphocytes % 25.1 % (15.3-44.8); MCHC 33.6 g/dL (32.0-36.0); MCV 86.1 fL (80-100); MPV 8.7 fL (7.6-11.3); Monocytes % 9.4 % (3.3-12.3); Neutrophils % 61.3 % (41.7-73.7); Platelets 143 thou/uL (152-406); RBC Red Blood Cell Count 4.23 M/uL (3.86-4.86)
[2024-05-28 01:04] LABS: Troponin High Sensitivity 4.5 pg/mL (<58.9)
--- NOTE | 2024-05-28 01:43 | EDPHYS ---
Physician Documentation [facility] Name: Ruby Chan Age: 78 yrs Sex: Female : 1945 Arrival Date: 05/27/2024 Time: 23:09 Bed 18 Private MD: ED Physician Abdoulaye Benz HPI: 05/27 23:24 This 78 yrs old Female presents to ER via Ambulatory with complaints of High Blood ms3 Pressure, Arm Pain. 23:24 Ruby Chan, a 78-year-old female, presents to the emergency department with left ms3 arm pain that began a little after 9 PM today. She describes the pain as initially severe, rating it a 10 out of 10 when attempting to turn over on it. The pain is exacerbated by movement and she reports being unable to raise her arm above her head. After taking her blood pressure medication, Amlodipine, and drinking water, her pain subsided significantly. Currently, she reports no pain. She has a history of hypertension. She reports feeling lightheaded but denies symptoms of shortness of breath, nausea, vomiting, or sweating. . Historical: - Allergies: 23:19 Demerol; bm8 - PMHx: 23:19 Hypertension; melanoma; uterine cancer; bm8 - PSHx: 23:19 section; bm8 - Immunization history:: Adult Immunizations up to date. - Infectious Disease History:: Denies. - Social history:: Smoking status: Patient denies any tobacco usage or history of. ROS: 23:24 Constitutional: Negative for fever, and chills. Cardiovascular: Negative for chest ms3 pain, and palpitations. Respiratory: Negative for shortness of breath, cough, wheezing, and pleuritic chest pain, Abdomen/GI: Negative for abdominal pain, nausea, vomiting, diarrhea, and constipation, 23:24 MS/extremity: Positive for left shoulder pain, Exam: 23:24 Constitutional: This is a well developed, well nourished patient who is awake, alert, ms3 and in no acute distress. Neck: Trachea midline, no cervical lymphadenopathy. Supple, full range of motion without nuchal rigidity, or vertebral point tenderness. No Meningismus. Chest/axilla: Normal chest wall appearance and motion. Nontender with no deformity. Cardiovascular: Regular rate and rhythm with a normal S1 and S2. No gallops, murmurs, or rubs. Normal PMI, no JVD. No pulse deficits. Respiratory: Lungs have equal breath sounds bilaterally, clear to auscultation and percussion. No rales, rhonchi or wheezes noted. No increased work of breathing, no retractions or nasal flaring. Skin: Warm, dry with normal turgor. Normal color with no rashes, no lesions, and no evidence of cellulitis. 23:24 Musculoskeletal/extremity: Extremities: noted in the left arm: There is no evidence of decreased ROM, deformity, pain, Vital Signs: 23:18 BP 177 / 86; Pulse 87; Resp 18; Temp 97.7; Pulse Ox 99% ; Weight 88 kg; Height 5 ft. 10 bm8 in. ; Pain /; 23:38 BP 142 / 79; Pulse 73; Resp 20; Temp 97.7(O); Pulse Ox 95% on R/A; ay 05/28 00:40 BP 137 / 77; Pulse 68; Resp 18; Pulse Ox 94% on R/A; ay 01:57 BP 137 / 72; Pulse 69; Resp 18; Pulse Ox 95% on R/A; ay 05/27 23:18 Body Mass Index 27.84 (88.00 kg, 177.8 cm) bm8 05/27 23:18 Pain Scale: Adult bm8 Mireya Coma Score: 05/27 23:38 Eye Response: spontaneous(4). Motor Response: obeys commands(6). Verbal Response: ay oriented(5). Total: 15. MDM: 23:24 Differential diagnosis: HTN vs OA vs Shoulder spur. ms3 23:46 Medical Screening Exam initiated ms3 05/28 01:42 Data reviewed: vital signs, nurses notes, lab test result(s), EKG, radiologic studies, ms3 and as a result, I will discharge patient. Independent interpretation of the following test(s) in the Emergency Department EKG: See my EKG interpretation above. Counseling: I had a detailed discussion with the patient and/or guardian regarding the historical points, exam findings, and any diagnostic results supporting the discharge/admit diagnosis, lab results, radiology results, the need for outpatient follow up, to return to the emergency department if symptoms worsen or persist or if there are any questions or concerns that arise at home. Special discussion: I discussed with the patient/guardian in detail that at this point there is no indication for admission to the hospital. It is understood, however, that if the symptoms persist or worsen the patient needs to return immediately for re-evaluation. ED course: Discussed labs, EKG, chest x-ray with patient. Patient states she wishes to be discharged as she has choir practice in the morning. Patient to follow-up with primary care physician in 2 to 3 days. All questions were answered. Return precautions discussed include worsening symptoms, or any other concerns. On reevaluation patient's symptoms are resolved, patient is alert and oriented x 4, in no apparent distress, nontoxic-appearing, speaking full sentences.. 05/27 23:23 Order name: Basic Metabolic Panel; Complete Time: 01:09 ms3 05/27 23:23 Order name: CBC with Diff; Complete Time: 01:09 ms3 05/27 23:23 Order name: Troponin HS; Complete Time: 01:09 ms3 05/27 23:23 Order name: XRAY Chest (1 view) ms3 05/27 23:23 Order name: Cardiac monitoring; Complete Time: 23:47 ms3 05/27 23:23 Order name: EKG - Nurse/Tech; Complete Time: 23:47 ms3 05/27 23:23 Order name: IV Saline Lock; Complete Time: 23:54 ms3 05/27 23:23 Order name: Labs collected and sent; Complete Time: 23:54 ms3 05/27 23:23 Order name: O2 Per Protocol; Complete Time: 23:47 ms3 05/27 23:23 Order name: O2 Sat Monitoring; Complete Time: 23:47 ms3 Administered Medications: No medications were administered Disposition Summary: 05/28/24 01:42 Discharge Ordered Notes: Location: Home ms3 Condition: Stable ms3 Diagnosis - Pain in left shoulder ms3 Followup: ms3 - With: Guille Patel DO - When: 2 - 3 days - Reason: Recheck today's complaints Discharge Instructions: - Discharge Summary Sheet ms3 - Shoulder Pain, Ltuz-bi-Iycb ms3 Forms: - Medication Reconciliation Form ms3 - Antibiotic Education ms3 - Prescription Opioid Use ms3 - Patient Portal Instructions ms3 - Leadership Thank You Letter ms3 Signatures: Dispatcher [employer] EDAbdoulaye Quinones DO DO ms3 Zaire Ogden, RN RN bm8 Corrections: (The following items were deleted from the chart) 05/27 23:23 23:23 BASIC METABOLIC PANEL+C.LAB.BRZ ordered. EDMS EDMS 23: 23:23 CBC+H.LAB.BRZ ordered. EDMS EDMS : 23:23 Troponin High Sensitivity+C.LAB.BRZ ordered. EDMS EDMS 23: 23:23 Chest Single View+RAD.RAD.BRZ ordered. EDMS EDMS
--- NOTE | 2024-05-28 01:43 | ER ---
Nurse's Notes [facility] Name: Ruby Chan Age: 78 yrs Sex: Female : 1945 Arrival Date: 05/27/2024 Time: 23:09 Bed 18 Private MD: Diagnosis: Pain in left shoulder Presentation: 05/27 23:18 Chief complaint: Patient states: high blood pressure and left arm pain that started bm8 around 2100. Coronavirus screen: Client denies travel out of the [place] in the last 14 days. At this time, the client does not indicate any symptoms associated with coronavirus-19. Ebola Screen: Patient negative for fever greater than or equal to 101.5 degrees Fahrenheit, and additional compatible Ebola Virus Disease symptoms Patient denies exposure to infectious person. Patient denies travel to an Ebola-affected area in the 21 days before illness onset. No symptoms or risks identified at this time. Initial Sepsis Screen: Does the patient meet any 2 criteria? No. Patient's initial sepsis screen is negative. Does the patient have a suspected source of infection? No. Patient's initial sepsis screen is negative. Risk Assessment: Do you want to hurt yourself or someone else? Patient reports no desire to harm self or others. Onset of symptoms was May 27, 2024 at 21:00. 23:18 Method Of Arrival: Ambulatory bm8 23:18 Acuity: CHALINO 3 bm8 Triage Assessment: 23:19 General: Appears in no apparent distress. uncomfortable, Behavior is calm, cooperative, bm8 appropriate for age. Pain: Complains of pain in left arm Pain currently is 7 out of 10 on a pain scale. Historical: - Allergies: 23:19 Demerol; bm8 - PMHx: 23:19 Hypertension; melanoma; uterine cancer; bm8 - PSHx: 23:19 section; bm8 - Immunization history:: Adult Immunizations up to date. - Infectious Disease History:: Denies. - Social history:: Smoking status: Patient denies any tobacco usage or history of. Screenin:38 [facility] ED Fall Risk Assessment (Adult) History of falling in the last 3 months, ay including since admission No falls in past 3 months (0 pts) Confusion or Disorientation No (0 pts) Intoxicated or Sedated No (0 pts) Impaired Gait No (0 pts) Mobility Assist Device Used No (0 pt) Altered Elimination No (0 pt) Score/Fall Risk Level 0 - 2 = Low Risk Oriented to surroundings, Maintained a safe environment, Educated pt \T\ family on fall prevention, incl call for assistance when getting out of bed. Abuse screen: Denies threats or abuse. Nutritional screening: No deficits noted. Tuberculosis screening: No symptoms or risk factors identified. Assessment: 23:38 General: Appears in no apparent distress. uncomfortable, Behavior is calm, cooperative. ay Pain: Complains of pain in Left shoulder. Neuro: Level of Consciousness is awake, alert, obeys commands, Oriented to person, place, time, situation, Information Technology Assistant are equal bilaterally Speech is normal. Cardiovascular: Heart tones S1 S2 Capillary refill < 3 seconds Rhythm is regular. Respiratory: Airway is patent Respiratory effort is even, unlabored, Respiratory pattern is regular, symmetrical. GI: Abdomen is round Bowel sounds present X 4 quads. : No signs and/or symptoms were reported regarding the genitourinary system. EENT: No signs and/or symptoms were reported regarding the EENT system. Derm: No signs and/or symptoms reported regarding the dermatologic system. Musculoskeletal: No signs and/or symptoms reported regarding the musculoskeletal system. 05/28 00:39 Reassessment: Patient appears in no apparent distress at this time. Patient and/or ay family updated on plan of care and expected duration. Pain level reassessed. Patient states feeling better. Vital Signs: 05/27 23:18 BP 177 / 86; Pulse 87; Resp 18; Temp 97.7; Pulse Ox 99% ; Weight 88 kg; Height 5 ft. 10 bm8 in. ; Pain 7/10; 23:38 BP 142 / 79; Pulse 73; Resp 20; Temp 97.7(O); Pulse Ox 95% on R/A; ay 05/28 00:40 BP 137 / 77; Pulse 68; Resp 18; Pulse Ox 94% on R/A; ay 01:57 BP 137 / 72; Pulse 69; Resp 18; Pulse Ox 95% on R/A; ay 05/27 23:18 Body Mass Index 27.84 (88.00 kg, 177.8 cm) bm8 05/27 23:18 Pain Scale: Adult bm8 Vitals: 05/27 23:38 Cardiac Rhythm Assessment Regular. ay Mireya Coma Score: 23:38 Eye Response: spontaneous(4). Motor Response: obeys commands(6). Verbal Response: ay oriented(5). Total: 15. ED Course: 23:11 Patient arrived in ED. im 23:16 Abdoulaye Benz DO is Attending Physician. ms3 23:19 Triage completed. bm8 23:19 Arm band placed on right wrist. Patient placed in waiting room. bm8 23:38 Torito Raymundo, RN is Primary Nurse. ay 23:38 Patient has correct armband on for positive identification. Bed in low position. Call ay light in reach. Side rails up X2. Provided Education on: care plan. 23:38 No provider procedures requiring assistance completed. ay 23:45 EKG done, by ED staff, reviewed by Abdoulaye Benz DO. ay 23:49 Inserted saline lock: 20 gauge in left antecubital area, using aseptic technique. ay 23:54 Basic Metabolic Panel Sent. ay 23:54 CBC with Diff Sent. ay 23:55 Troponin HS Sent. ay 05/28 00:26 XRAY Chest (1 view) In Process Unspecified. EDMS 01:42 Guille Patel DO is Referral Physician. ms3 01:57 IV discontinued, intact, bleeding controlled, No redness/swelling at site. Pressure ay dressing applied. Administered Medications: No medications were administered Medication: 05/27 23:38 VIS not applicable for this client. ay Outcome: 05/28 01:42 Discharge ordered by MD. ms3 01:57 Discharged to home ambulatory, ay 01:57 Condition: stable 01:57 Discharge instructions given to patient, Instructed on discharge instructions, follow up and referral plans. 01:59 Patient left the ED. ay Signatures: Dispatcher [employer] EDMS Abdoulaye Benz DO DO ms3 Mamta Berry Brad, RN RN bm8 Torito Raymundo, ALLAN RN ay
[2024-05-28 02:13] VITALS: TEMP 97.7
[2024-05-28 02:18] VITALS: BP 137/72; O2SAT 95
--- NOTE | 2024-05-28 05:22 | RAD REPORT ---
EXAM: XR Chest, 1 View CLINICAL HISTORY: Chest pain. TECHNIQUE: Frontal view of the chest. COMPARISON: XR Chest 03/08/2022 (report only). FINDINGS: Lungs: Coarsened interstitial markings. No focal consolidation. Pleural space: Unremarkable. No pneumothorax. Heart: Unremarkable. No cardiomegaly. Mediastinum: Unremarkable. Normal mediastinal contour. Bones/joints: Unremarkable. No acute fracture. Vasculature: Thoracic aortic atherosclerosis. IMPRESSION: No acute disease. Electronically signed by: Amisha Gay MD 05/28/2024 01:22 AM [facility] Due to temporary technical issues with the PACS/Spyra reporting system, reports are being jamie d by the in-house radiologist without review as a courtesy to ensure prompt reporting the interpreting radiologist is fully responsible for the content of the report. Transcribed Date/Time: 05/28/2024 5:22 AM
--- NOTE | 2024-05-31 12:07 | EKG ---
Test Date: 2024-05-27 Test Time: 23:32:09 Classification Officer: LEANDRA MEASUREMENT RESULTS: Intervals: Rate: 69 KS: 170 QRSD: 88 QT: 398 QTc: 426 [place]: P: 46 KS: 170 QRS: 34 T: 40 INTERPRETIVE STATEMENTS: Normal sinus rhythm Normal ECG Compared to ECG 02/18/2023 15:06:46 No significant changes Electronically Signed On 05-31-24 12:04:29 VIDEOTAPE EDITOR by Leander Flynn
== END 2024-05-28 01:59 | disposition home or self-care (01) ==
LOC: ER 23:09
DX: M25.512 Pain in left shoulder (principal); I10 Essential (primary) hypertension
CPT/HCPCS: 36415; 71045; 80048; 84484; 85025; 93005; 99284